=== PATIENT | male | born 1930 | race Caucasian/White ===

== ENCOUNTER → 2016-06-13 | Outpatient (CLI) | payer OTHER, MEDICARE ==
[~2016-06-13] MED LIST: LEVO125T5 PO; PRAV20TA PO
[2016-06-13 12:18] LABS: BASO % 0.6 %; BASO ABS # 0.05 K/uL (0-0.2); COMPLETE YES; EOS % 4.9 %; HEMATOCRIT 43.3 % (42-52); IG% 0.3 %; LYMPH % 48.4 %; LYMPH ABS # 3.76 K/uL (1.2-3.4); MEAN CELL VOLUME 88.9 fL (80-100); MEAN CORPUSCULAR HEMOGLOBIN 29.4 pg (25-34); MEAN PLATELET VOLUME 10.8 fL (7.4-10.4); MONO % 8.5 %; NEUT % 37.3 %; PLATELET COUNT 255 K/uL (130-400); RED BLOOD COUNT 4.87 M/uL (4.7-6.1); WHITE BLOOD COUNT 7.77 K/uL (4.8-10.8)
[2016-06-13 12:32] LABS: URINE APPEARANCE CLEAR (CLEAR); URINE BILIRUBIN NEG (NEG); URINE COLOR YELLOW; URINE EPITHELIAL CELL AUTO 0-5 /lpf (0-5); URINE NITRITE NEG (NEG); URINE PH 7.5 (4.5-7.5); URINE SPECIFIC GRAVITY 1.015 (1.000-1.030); UROBILINOGEN NEG (NEG); ZZUR CULT IF INDIC CLEAN CATCH NO
[2016-06-13 12:39] LABS: ESTIMATED AVERAGE GLUCOSE 146 mg/dl; HA1C FLAG Normal (Normal)
[2016-06-13 12:55] LABS: MANUAL MICROSCOPIC REQUIRED? NO; REVIEW REQ? NO
== END | disposition home or self-care (01) ==
LOC: C.LABBFT 10:19
PROVIDERS: ATTEND Internal Medicine
DX: R80.9 Proteinuria, unspecified (principal); E53.8 Deficiency of other specified B group vitamins; E11.9 Type 2 diabetes mellitus without complications

== ENCOUNTER → 2016-08-03 | Outpatient (CLI) | payer OTHER, MEDICARE ==
[~2016-08-03] MED LIST changes: +LEVO125T4 PO; -LEVO125T5 PO
[2016-08-03 18:19] LABS: ALT/SGPT 26 U/L (12-78); AST/SGOT 22 U/L (15-37); BLOOD UREA NITROGEN 16 mg/dl (7-18); BUN/CREATININE RATIO 16.7 (10-20); CALCIUM 8.8 mg/dl (8.5-10.1); CARBON DIOXIDE 29 mmol/L (21-32); CHLORIDE 105 mmol/L (98-107); CREATININE 0.98 mg/dl (0.60-1.40); GLUCOSE 75 mg/dl (70-99); POTASSIUM 4.1 mmol/L (3.5-5.1); SODIUM 142 mmol/L (136-145)
[2016-08-03 18:30] LABS: ALB/GLOB RATIO 0.6 (0.9-2); ALKALINE PHOSPHATASE 96 U/L (45-117)
--- NOTE | 2016-08-09 10:03 | CODING QUERY MEDICAL NECESSITY ---
SUPPORTING DIAGNOSIS NEEDED A supporting diagnosis is required for the test/procedure performed on this patient in order for us to be reimbursed by the patient's insurance. Please provide a supporting diagnosis for the following test/procedure listed below next to the test name along with your signature. *If there is no additional diagnosis for this patient that would support the following test/procedure please document that below next to the test/procedure. Test(s)/Procedure(s) that require a supporting diagnosis: DOS 08/03 * Vitamin D DIAGNOSIS: Provider Signature: Date: Thank you Nancy Fang Health Information Management Once completed, please kindly fax back to [phone] For questions please call [phone]
== END | disposition home or self-care (01) ==
LOC: C.LABBFT 12:22
PROVIDERS: ATTEND Internal Medicine
DX: R53.83 Other fatigue (principal); E55.9 Vitamin D deficiency, unspecified

== ENCOUNTER → 2017-01-01 | Outpatient (CLI) | payer OTHER, MEDICARE ==
[2017-01-01 12:10] LABS: BASO ABS # 0.07 K/uL (0-0.2); COMPLETE YES; EOS % 5.8 %; HEMATOCRIT 42.6 % (42-52); IG% 0.1 %; LYMPH % 42.7 %; LYMPH ABS # 2.93 K/uL (1.2-3.4); MEAN CELL VOLUME 90.8 fL (80-100); MEAN CORPUSCULAR HEMOGLOBIN 29.2 pg (25-34); MEAN CORPUSCULAR HGB CONC 32.2 g/dl (32-36); MEAN PLATELET VOLUME 10.9 fL (7.4-10.4); MONO % 8.7 %; NEUT % 41.7 %; PLATELET COUNT 211 K/uL (130-400); RED BLOOD COUNT 4.69 M/uL (4.7-6.1); WHITE BLOOD COUNT 6.86 K/uL (4.8-10.8)
[2017-01-01 12:25] LABS: ALB/GLOB RATIO 0.8 (0.9-2); ALT/SGPT 29 U/L (12-78); AST/SGOT 23 U/L (15-37); BLOOD UREA NITROGEN 18 mg/dl (7-18); BUN/CREATININE RATIO 15.9 (10-20); CARBON DIOXIDE 29 mmol/L (21-32); CHLORIDE 106 mmol/L (98-107); CHOLESTEROL 178 mg/dl (0-200); GLUCOSE 115 mg/dl (70-99); POTASSIUM 4.7 mmol/L (3.5-5.1); SODIUM 140 mmol/L (136-145); TRIGLYCERIDES 142 mg/dl (0-150); VERY LOW DENSITY LIPOPROT CALC 28 mg/dl
[2017-01-01 12:44] LABS: ALKALINE PHOSPHATASE 82 U/L (45-117); CHOLESTEROL/HDL RATIO 4.2; HDL CHOLESTEROL 42 mg/dl; LDL CHOLESTEROL CALCULATED 108 mg/dl
[2017-01-01 12:47] LABS: RATIO 67.6 mcg/mg (0-30.0)
[2017-01-01 13:00] LABS: ESTIMATED AVERAGE GLUCOSE 146 mg/dl; HA1C FLAG Normal (Normal)
[2017-01-02 18:24] LABS: ALBUMIN 3.7 G/DL (3.8-4.8); GAMMA GLOBULIN 1.5 G/DL (0.8-1.7); MONOCLONAL PROTEIN BAND 1 0.7 G/DL (NOT DETECTED); MONOCLONAL PROTEIN BAND 2 0.5 G/DL (NOT DETECTED); TOTAL PROTEIN 7.1 G/DL (6.2-8.3)
[2017-01-03 11:33] LABS: ALPHA-2-GLOBULIN % 8.78 %; BETA GLOBULIN % 15.03 %; CREATININE UR 100 MG/DL (20-370); GAMMA GLOBULIN % 17.83 %
== END | disposition home or self-care (01) ==
LOC: C.LABBFT 08:08
PROVIDERS: ATTEND Internal Medicine
DX: R80.9 Proteinuria, unspecified (principal); D64.9 Anemia, unspecified; E53.8 Deficiency of other specified B group vitamins; E78.00 Pure hypercholesterolemia, unspecified; E55.9 Vitamin D deficiency, unspecified; E11.9 Type 2 diabetes mellitus without complications; E03.9 Hypothyroidism, unspecified

== ENCOUNTER → 2017-05-16 | Outpatient (CLI) | payer OTHER, MEDICARE ==
[~2017-05-16] MED LIST changes: -LEVO125T4 PO; +LEVO125T5 PO
[2017-05-16 12:38] LABS: ALT/SGPT 23 U/L (12-78); BLOOD UREA NITROGEN 24 mg/dl (7-18); BUN/CREATININE RATIO 19.6 (10-20); CALCIUM 8.8 mg/dl (8.5-10.1); CARBON DIOXIDE 28 mmol/L (21-32); CHLORIDE 106 mmol/L (98-107); CHOLESTEROL 162 mg/dl (0-200); GLUCOSE 103 mg/dl (70-99); GLUCOSE,FASTING 103 mg/dl (70-99); POTASSIUM 4.6 mmol/L (3.5-5.1); SODIUM 139 mmol/L (136-145)
[2017-05-16 12:41] LABS: ALB/GLOB RATIO 0.7 (0.9-2); ALKALINE PHOSPHATASE 106 U/L (45-117); AST/SGOT 21 U/L (15-37); CHOLESTEROL/HDL RATIO 3.3; HDL CHOLESTEROL 49 mg/dl; LDL CHOLESTEROL CALCULATED 100 mg/dl; TRIGLYCERIDES 63 mg/dl (0-150); VERY LOW DENSITY LIPOPROT CALC 13 mg/dl
[2017-05-16 12:52] LABS: ESTIMATED AVERAGE GLUCOSE 140 mg/dl; HA1C FLAG Normal (Normal)
== END | disposition home or self-care (01) ==
LOC: C.LABBFT 08:16
PROVIDERS: ATTEND Internal Medicine
DX: R77.1 Abnormality of globulin (principal); E53.8 Deficiency of other specified B group vitamins; E11.9 Type 2 diabetes mellitus without complications; E78.00 Pure hypercholesterolemia, unspecified

== ENCOUNTER → 2017-05-18 | Outpatient (CLI) | payer OTHER, MEDICARE ==
--- NOTE | 2017-05-18 10:31 | DIAGNOSTIC IMAGING REPORT ---
L HIP UNILATERAL 2 VIEWS CLINICAL HISTORY: M25.552 Hip pain, [id number] pain COMPARISON: None. Discussion: Mild degenerative narrowing left hip joint space. No evidence for acetabular protrusion. No evidence for fracture. Minimal calcific trochanteric bursitis. IMPRESSION: 1. Mild degenerative narrowing left hip joint space. 2. Mild calcific trochanteric bursitis. 3. No acute bony abnormality The above report was generated using voice recognition software. It may contain grammatical, syntax or spelling errors. Electronically signed by: Kang Tena M.D. 05/18/2017 10:29 AM Dictated Date/Time: 05/18/2017 10:28 AM
== END | disposition home or self-care (01) ==
LOC: C.RAD1850 10:15
PROVIDERS: ATTEND Internal Medicine
DX: M89.8X5 Other specified disorders of bone, thigh (principal); M70.62 Trochanteric bursitis, left hip

== ENCOUNTER → 2017-06-15 | Outpatient (CLI) | payer OTHER, MEDICARE | END | disposition home or self-care (01) | LOC: C.RDSM 16:12 | PROVIDERS: ATTEND Orthopaedic Surgery | DX: M25.559 Pain in unspecified hip (principal) ==

== ENCOUNTER → 2017-09-11 | Outpatient (CLI) | payer OTHER, MEDICARE ==
[2017-09-12 05:34] LABS: HEMOGLOBIN A1C 6.5 % (4.5-5.6)
== END | disposition home or self-care (01) ==
LOC: C.LABBFT 07:25
PROVIDERS: ATTEND Internal Medicine
DX: E53.8 Deficiency of other specified B group vitamins (principal); E78.00 Pure hypercholesterolemia, unspecified; E11.9 Type 2 diabetes mellitus without complications; E03.9 Hypothyroidism, unspecified; E55.9 Vitamin D deficiency, unspecified

== ENCOUNTER → 2018-01-24 | Outpatient (CLI) | payer OTHER, MEDICARE ==
[2018-01-24 13:06] LABS: BASO % 1.6 %; BASO ABS # 0.11 K/uL (0-0.2); EOS % 21.1 %; EOS ABS # 1.43 K/uL (0-0.5); HEMATOCRIT 40.7 % (42-52); HEMOGLOBIN 13.4 g/dL (14.0-18.0); IG# 0.01 K/uL (0.00-0.02); LYMPH % 34.2 %; LYMPH ABS # 2.32 K/uL (1.2-3.4); MEAN CELL VOLUME 92.1 fL (80-100); MEAN CORPUSCULAR HEMOGLOBIN 30.3 pg (25-34); MEAN CORPUSCULAR HGB CONC 32.9 g/dl (32-36); MEAN PLATELET VOLUME 10.7 fL (7.4-10.4); MONO % 8.7 %; MONO ABS # 0.59 K/uL (0.11-0.59); NEUT % 34.3 %; NEUT ABS # 2.33 K/uL (1.4-6.5); PLATELET COUNT 216 K/uL (130-400); RED CELL DISTRIBUTION WIDTH CV 15.3 % (11.5-14.5); RED CELL DISTRIBUTION WIDTH SD 51.9 fL (36.4-46.3); WHITE BLOOD COUNT 6.79 K/uL (4.8-10.8)
[2018-01-24 13:19] LABS: HEMOGLOBIN A1C 6.3 % (4.5-5.6)
[2018-01-24 13:31] LABS: ALBUMIN 3.4 gm/dl (3.4-5.0); ALKALINE PHOSPHATASE 158 U/L (45-117); ALT/SGPT 22 U/L (12-78); AST/SGOT 21 U/L (15-37); BLOOD UREA NITROGEN 22 mg/dl (7-18); CALCIUM 8.4 mg/dl (8.5-10.1); CARBON DIOXIDE 23 mmol/L (21-32); CHOLESTEROL 159 mg/dl (0-200); CREATININE 1.19 mg/dl (0.60-1.40); GLUCOSE 96 mg/dl (70-99); LDL CHOLESTEROL CALCULATED 97 mg/dl; SODIUM 139 mmol/L (136-145); TOTAL PROTEIN 7.7 gm/dl (6.4-8.2)
== END | disposition home or self-care (01) ==
LOC: C.LABBFT 07:50
PROVIDERS: ATTEND Internal Medicine
DX: E11.9 Type 2 diabetes mellitus without complications (principal); R77.1 Abnormality of globulin; E03.9 Hypothyroidism, unspecified; E55.9 Vitamin D deficiency, unspecified; E78.00 Pure hypercholesterolemia, unspecified; E53.8 Deficiency of other specified B group vitamins

== ENCOUNTER 2019-05-18 22:33 | Inpatient (IN) ==
[2019-05-18] MEDS ORDERED: SODIUM CHLORIDE 0.9% 500 ML IV SCH (23:15)
[2019-05-18 23:46] LABS: Basophils # (auto) 0.02 K/uL (0-0.2); Basophils % (auto) 0.1 %; Hematocrit (blood only) 41.1 % (42-52); Hemoglobin 13.9 g/dL (14.0-18.0); Immature Granulocytes % (auto) 1.1 %; Lymphocytes # (auto) 1.06 K/uL (1.2-3.4); Mean Corpuscular Hemoglobin 30.8 pg (25-34); Mean Corpuscular Hgb Conc 33.8 g/dL (32-36); Mean Corpuscular Volume 91.1 fL (80-100); Monocytes # (auto) 1.77 K/uL (0.11-0.59); Neutrophils # (auto) 14.69 K/uL (1.4-6.5); Neutrophils % (auto) 82.8 %; Platelet Count 263 K/uL (130-400); RDW Coefficient of Variation 14.6 % (11.5-14.5); RDW Standard Deviation 48.9 fL (36.4-46.3); Red Blood Count 4.51 M/uL (4.7-6.1); White Blood Count 17.74 K/uL (4.8-10.8)
[2019-05-18 23:49] LABS: Base Excess VBG -1.6 mEq/L; pH VBG 7.37 (7.36-7.41)
[2019-05-18 23:52] LABS: INR 1.1 (0.9-1.1); Prothrombin Time 11.5 Seconds (9.0-12.0)
[2019-05-19 00:08] LABS: Troponin I 0.066 ng/ml (0-0.045)
[2019-05-19 00:11] LABS: Albumin Level 2.5 gm/dl (3.4-5.0); BUN Creatinine Ratio 18.1 (10-20); Calcium 8.6 mg/dl (8.5-10.1); Creatinine Clr Calc Pharmacy 25.5 ml/min; Est GFR (African American) 31.6; Est GFR (Non-African American) 27.2; Magnesium 2.5 mg/dl (1.8-2.4); Potassium 3.6 mmol/L (3.5-5.1)
[2019-05-19 00:25] LABS: Albumin Globulin Ratio 0.5 (0.9-2); Bilirubin,Total 0.8 mg/dl (0.2-1); Globulin 5.4 gm/dl (2.5-4.0); Thyroid Stimulating Hormone 0.413 uIu/ml (0.300-4.500); Total Protein 7.9 gm/dl (6.4-8.2)
[2019-05-19] MEDS ORDERED: SODIUM CHLORIDE 0.9% 1000ML 1,000 ML IV ONE (00:27)
[2019-05-19] MEDS ORDERED: NYSTATIN POWDER 15GM BTL EXT PRN (02:20)
--- NOTE | 2019-05-19 02:34 | History & Physical Report ---
Date of Service May 19, 2019 Assessment & Plan (1) Rhabdomyolysis: Patient is a 89yo M H ILD, , MGUS, hypothyroid, HLD, T2DM, Depression, DJD, neuropathy, admitted for rhabdomyolysis/darryl/weakness Rhabdomyolysis/DARRYL -Likely intertwined and related to acute on chronic dehydration -IVF NSS at 200cc/hr. Regular lung exams rec'd. -Recheck labs in AM: CK, LFTs, K, Ca, CBC Weakness/dizziness/fatigue -Pt reports anorexia -Nutrition consult -PT/OT consulted -Holding gabapentin; consider as possible contributing factor to chronic dizziness/unsteadiness Diabetes -Pt reports "borderline" diabetic; on no meds at home -Monitor glucose with daily labs; consider ISS prn Hypothyroid -TSH wnl; cont home meds HLD -appears diet controlled; heart healthy diet Neuropathy -holding gabapentin as above. Code: DNR/DNI Dispo: admit to med/surg DVTP: heparin SQ BID GranddaughterGuillermina would like to be contacted at [phone]. (2) DARRYL (acute kidney injury): (3) Weakness: (4) Diabetes mellitus: (5) Hypercholesterolemia: (6) Hypothyroidism: (7) Fatigue: (8) Neuropathy: History of Present Illness Chief Complaint: weakness Primary Care Provider: Irwin Fam MD Patient is a 89yo M H ILD, , MGUS, hypothyroid, HLD, T2DM, Depression, anemia, DJD, neuropathy, who presents via EMS after being found by granddaughter on the floor. History provided by Granddaughter, Guillermina. She notes that he has been having chronic issues with LE weakness and dizziness, however [place] and felt [place]%. [place], he thinks he caught a cold which he has been struggling with. Pt has family check on him daily, and granddaughter states on Sunday (2 days [employer]), he was c/o diminished strength, not eating, dehydrated, decreased ambulation. Another family member did check on him on Sunday and noted more of the same. Granddaughter checked on him this evening (Sunday), and found him alongside his bed, with his head resting on the bed, legs extended on the floor. Pt does not 100% remember events of this evening, but states that he was too weak while getting into bed and denies falling out of bed or hitting his head. He does not believe he had been there long. Granddaughter states he felt he couldn't move his legs, and therefore a neighbor helped her hoist him into bed to await EMS. She notes that he will periodically have issues with balance and leg weakness and that physicians have reported there's not much to be done. Guillermina notes that he has an appointment on Sunday morning and she expected that Dr. Fam would be sending him to the ER if for nothing else, rehydration. In the ER, Labwork revealed an elevtaed WBC of 17K, DARRYL with Cr of 2.09 (Baseline 1.2-1.3), CK of 5941, mildly elevated troponin 0.066, Mildly altered LFTs, and a normal VBG, normal TSH. He was given a 1500cc bolus of fluid. Head CT, Ab/Pelvis CT both without acute findings; pending formal read by radiology. Allergies Allergy/AdvReac Type Severity Reaction Status Date / Time No Known Allergies Allergy Verified 05/18/19 23:38 Home Medications Home Medications Medication Instructions Recorded Confirmed Type cyanocobalamin (vitamin B-12) 1,000 mcg SQ MONTHLY ml 11/30/18 05/18/19 History 1,000 mcg/mL injection solution vitamins A,C,M-yeni-vprkhl 14,320 1 cap PO BID cap 11/30/18 05/18/19 History unit-226 mg-200 unit capsule celecoxib 200 mg capsule 200 mg PO DAILY cap 03/07/19 05/18/19 History paroxetine HCl 10 mg tablet 10 mg PO DAILY #90 tab 04/23/19 05/18/19 Rx gabapentin 100 mg capsule 200 mg PO BID #120 cap 04/30/19 05/18/19 Rx nystatin 100,000 unit/gram topical 1 appln TOP BID #30 gm 04/30/19 05/18/19 Rx powder levothyroxine 112 mcg tablet 112 mcg PO DAILY 05/18/19 05/18/19 History Past Med/Surg History Medical History Carotid artery stenosis Encounter for screening for malignant neoplasm of prostate Squamous cell carcinoma Surgical History History of carpal tunnel surgery Neuroplasty decompression mediam nerve at carpal tunnel. 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 Beliefs That Will Affect Care: None marital status: Current Living Situation: Alone current occupational status: retired Other Information That Helps Us Care for You: No Feels Safe at Home: Yes Safety Concerns: Feels Safe At This Time Smoking Status: Never smoker Hx Alcohol Use: No Hx Substance Use: No Review of Systems Review of Systems: All systems reviewed & are unremarkable except as noted in HPI & below Constitutional: + fatigue, + malaise, + weakness and + anorexia; no fever, no chills and no body aches Ear, Nose, Mouth, Throat: + dry mouth Respiratory: + cough and + chest congestion; no dyspnea Cardiovascular: no chest pain, no radiating jaw, neck or arm pain, no dyspnea at rest and no dyspnea on exertion Gastrointestinal: + bloating, + nausea and + diarrhea/loose stools; no abdominal pain Musculoskeletal: + back pain Integumentary: no rash Neurologic: + gait abnormality, + unsteadiness, + generalized weakness, + loss of sensation and + numbness; no falls and no dizziness Psychiatric: + depression Physical Exam Constitutional: WD/WN, vitals as above + ill appearing (chronically) Eyes: PERRL, conjunctivae normal, anicteric sclerae ENMT: Mouth: + oral mucosal abnormality (Dry mucous membranes) Neck: normal visual inspection Respiratory: normal respiratory effort, lungs clear to auscultation Cardiovascular: Rate/Rhythm: regular rate and regular rhythm Heart Sounds: + murmur Vessels: + carotid bruit Extremities: no pedal edema Gastrointestinal (Abdomen): normal bowel sounds, soft, nontender, no hepatosplenomegaly Musculoskeletal: Extremities: strength 5/5 throughout (4/5 strength in lower extremities, patient able to move on his own) Skin: no rashes, warm and dry + turgor decreased Neurologic: PERRL, EOMI, accommodation nl, no face palsy, no dysarthria Psychiatric: A+Ox3, euthymic affect (slow to answer but did answer correctly) Results & Data Vital Signs (Past 12 Hours) Vital Signs Temp Pulse Resp BP Pulse Ox 05/19/19 02:01 78 24 97 05/19/19 02:00 83 22 127/56 L 95 05/19/19 01:31 82 20 05/19/19 01:30 81 20 119/55 L 05/19/19 01:01 83 24 93 05/19/19 01:00 82 25 H 122/56 L 95 05/19/19 00:56 84 25 H 107/65 96 05/19/19 00:54 81 25 H 95 05/18/19 23:35 96 05/18/19 23:31 91 H 26 H 05/18/19 23:30 91 H 28 H 118/50 L 05/18/19 23:01 93 H 18 96 05/18/19 23:00 96 H 18 104/66 95 05/18/19 22:48 99.1 F 90 18 108/47 L 95 05/18/19 22:45 95 H 20 94 05/18/19 22:41 99 H 20 108/47 L 94 Laboratory Results 05/18/19 05/18/19 05/18/19 Range/Units 23:29 23:29 23:29 WBC (4.8-10.8) K/uL RBC (4.7-6.1) M/uL Hgb (14.0-18.0) g/dL Hct (42-52) % MCV (80-100) fL MCH (25-34) pg MCHC (32-36) g/dL RDW Std Deviation (36.4-46.3) fL RDW Coeff of Eric (11.5-14.5) % Plt Count (130-400) K/uL MPV (7.4-10.4) fL Immature Gran % (Auto) % Neut % (Auto) % Lymph % (Auto) % [place] % (Auto) % Eos % (Auto) % Baso % (Auto) % Immature Gran # (Auto) (0.00-0.02) K/uL Neut # (Auto) (1.4-6.5) K/uL Lymph # (Auto) (1.2-3.4) K/uL [place] # (Auto) (0.11-0.59) K/uL Eos # (Auto) (0-0.5) K/uL Baso # (Auto) (0-0.2) K/uL PT (9.0-12.0) Seconds INR (0.9-1.1) VBG pH 7.37 (7.36-7.41) VBG pCO2 42 (38-50) mmHg VBG pO2 31 mmHg VBG HCO3 24 mmol/L VBG O2 Saturation 62.0 % VBG Base Excess -1.6 mEq/L Barometric Pressure 735.9 mm/Hg Sodium (136-145) mmol/L Potassium (3.5-5.1) mmol/L Chloride (98-107) mmol/L Carbon Dioxide (21-32) mmol/L Anion Gap (3-11) BUN (7-18) mg/dl Creatinine (0.6-1.4) mg/dl Est Cr Clr Drug Dosing ml/min Est GFR ( Amer) Est GFR (Non-Af Amer) BUN/Creatinine Ratio (10-20) Glucose (70-99) mg/dl Calcium (8.5-10.1) mg/dl Magnesium (1.8-2.4) mg/dl Total Bilirubin (0.2-1) mg/dl AST (15-37) U/L ALT (12-78) U/L Alkaline Phosphatase (45-117) U/L Ammonia 27.0 (11-32) umol/L Total Creatine Kinase (39-308) U/L Troponin I 0.066 H* (0-0.045) ng/ml Total Protein (6.4-8.2) gm/dl Albumin (3.4-5.0) gm/dl Globulin (2.5-4.0) gm/dl Albumin/Globulin Ratio (0.9-2) Lipase 101 (73-393) U/L TSH (0.300-4.500) uIu/ml Specimen Hemolysis 05/18/19 05/18/19 05/18/19 Range/Units 23:29 23:29 23:29 WBC 17.74 H (4.8-10.8) K/uL RBC 4.51 L (4.7-6.1) M/uL Hgb 13.9 L (14.0-18.0) g/dL Hct 41.1 L (42-52) % MCV 91.1 (80-100) fL MCH 30.8 (25-34) pg MCHC 33.8 (32-36) g/dL RDW Std Deviation 48.9 H (36.4-46.3) fL RDW Coeff of Eric 14.6 H (11.5-14.5) % Plt Count 263 (130-400) K/uL MPV 12.0 H (7.4-10.4) fL Immature Gran % (Auto) 1.1 % Neut % (Auto) 82.8 % Lymph % (Auto) 6.0 % [place] % (Auto) 10.0 % Eos % (Auto) 0.0 % Baso % (Auto) 0.1 % Immature Gran # (Auto) 0.20 H (0.00-0.02) K/uL Neut # (Auto) 14.69 H (1.4-6.5) K/uL Lymph # (Auto) 1.06 L (1.2-3.4) K/uL [place] # (Auto) 1.77 H (0.11-0.59) K/uL Eos # (Auto) 0.00 (0-0.5) K/uL Baso # (Auto) 0.02 (0-0.2) K/uL PT 11.5 (9.0-12.0) Seconds INR 1.1 (0.9-1.1) VBG pH (7.36-7.41) VBG pCO2 (38-50) mmHg VBG pO2 mmHg VBG HCO3 mmol/L VBG O2 Saturation % VBG Base Excess mEq/L Barometric Pressure mm/Hg Sodium 138 (136-145) mmol/L Potassium 3.6 (3.5-5.1) mmol/L Chloride 105 (98-107) mmol/L Carbon Dioxide 23 (21-32) mmol/L Anion Gap 10.0 (3-11) BUN 38 H (7-18) mg/dl Creatinine 2.09 H (0.6-1.4) mg/dl Est Cr Clr Drug Dosing 25.5 ml/min Est GFR ( Amer) 31.6 Est GFR (Non-Af Amer) 27.2 BUN/Creatinine Ratio 18.1 (10-20) Glucose 182 H (70-99) mg/dl Calcium 8.6 (8.5-10.1) mg/dl Magnesium 2.5 H (1.8-2.4) mg/dl Total Bilirubin 0.8 (0.2-1) mg/dl AST 127 H (15-37) U/L ALT 56 (12-78) U/L Alkaline Phosphatase 126 H (45-117) U/L Ammonia (11-32) umol/L Total Creatine Kinase 5941 H (39-308) U/L Troponin I (0-0.045) ng/ml Total Protein 7.9 (6.4-8.2) gm/dl Albumin 2.5 L (3.4-5.0) gm/dl Globulin 5.4 H (2.5-4.0) gm/dl Albumin/Globulin Ratio 0.5 L (0.9-2) Lipase (73-393) U/L TSH 0.413 (0.300-4.500) uIu/ml Specimen Hemolysis Code Status & VTE Plan Code Status DNR/DNI Heparin SQ BID VTE Prophylaxis Plan VTE Prophylaxis will be ordered: Yes Supervising Physician Co-Signing Physician Notes Patient was seen and examined by me personally. I reviewed the chart, the orders and discussed the case in detail with Dr. Deonna Menezes MD . I read this H&P and agree with its contents to entirety. Resident Activity Tracking Resident Involvement: Resident Care Provided Care Provided: Adult Hospital Medicine (1) Rhabdomyolysis Rhabdomyolysis type: non-traumatic Qualified Code(s): M62.82 - Rhabdomyolysis
[2019-05-19] MEDS ORDERED: MAGNESIUM HYDROXIDE SUSP 30 ML UDC PO PRN (03:27)
[2019-05-19] MEDS ORDERED: ONDANSETRON INJ 2 MG/ML 2 ML VIAL IV PRN (03:27)
[2019-05-19] MEDS ORDERED: ALUMINUM/MAGNESIUM SUSP 30 ML UDC PO PRN (03:27)
[2019-05-19] MEDS ORDERED: POLYETHYLENE (MIRALAX) 17 GM PACK PO PRN (03:27)
[2019-05-19] MEDS: SODIUM CHLORIDE 0.9% 1000ML 1,000 ML IV SCH ×4 (04:14→20:10)
--- NOTE | 2019-05-19 05:26 | Billing Data ---
Coding Level of Care Code 09129 Initial Inpt Care Lvl 3
[2019-05-19] MEDS: LEVOTHYROXINE SODIUM 112 MCG TABLET PO SCH (05:40)
--- NOTE | 2019-05-19 06:00 | Emergency Department Note ---
Entered by Suly Lynch acting as a scribe for Allen Hanson M.D. History of Present Illness General Chief complaint: Fall Stated complaint: FALL, PAIN ALL OVER Time Seen by Provider: 05/18/19 22:52 Source: patient and family (granddaughter) History of Present Illness Onset (ago): day(s) 6 Location: head (generally) Pain Consistency: + other (worsening) Quality: + other (weakness) Associated symptoms: + other (positive congestion; positive trouble getting out of chair; positive hip pain; negative eating or drinking properly; positive loss of energy; positive fall into bed; positive white discharge from rectum; positive white stool) Treatments prior to arrival: other (cream/powder for yeast infection) The patient is a 89 year old male with PMHx of hypothyroidism, diabetes, asthma, and aortic stenosis who presents to the Emergency Room with complaints of worsening weakness that began Sunday, 6 days prior to arrival, per the patient's granddaughter. Per the patient's granddaughter the patient just had a cold at the beginning of last week but then progressively became more weak during this time. The patient reports congestion currently. He states that during this time he has had trouble getting out of his chair, and states that he has hip pain. The patient states that he has not been eating or drinking during this time, and states that he has no energy. The patient states that today he was found by family in bed after falling into bed. The patient states that for approximately 4 or 5 weeks he has had white discharge from his rectum, and states that all of his stool has been white. The patient's granddaughter states that the patient's PCP told the patient he had a yeast infection and gave him some sort of cream or powder for this. The patient's history is limited secondary to confusion. Home Medications Home Medications Medication Instructions Recorded Confirmed Type cyanocobalamin (vitamin B-12) 1,000 mcg SQ MONTHLY ml 11/30/18 05/18/19 History 1,000 mcg/mL injection solution vitamins A,C,O-[id number] 14,320 1 cap PO BID cap 11/30/18 05/18/19 History unit-226 mg-200 unit capsule celecoxib 200 mg capsule 200 mg PO DAILY cap 03/07/19 05/18/19 History paroxetine HCl 10 mg tablet 10 mg PO DAILY #90 tab 04/23/19 05/18/19 Rx gabapentin 100 mg capsule 200 mg PO BID #120 cap 04/30/19 05/18/19 Rx nystatin 100,000 unit/gram topical 1 appln TOP BID #30 gm 04/30/19 05/18/19 Rx powder levothyroxine 112 mcg tablet 112 mcg PO DAILY 05/18/19 05/18/19 History Allergies Allergy/AdvReac Type Severity Reaction Status Date / Time No Known Allergies Allergy Verified 05/18/19 23:38 Past Med/Surg History Medical History Carotid artery stenosis Encounter for screening for malignant neoplasm of prostate Squamous cell carcinoma Surgical History History of carpal tunnel surgery Neuroplasty decompression mediam nerve at carpal tunnel. History of total knee arthroplasty Family History Mother Dementia Father Diabetes Stroke Son Quadriplegia Social History Preferred Language: Belarusian Communication Ability: Effective Visual Impairment: No Limitations Pipe Roller Required: No Beliefs That Will Affect Care: None marital status: Current Living Situation: Alone current occupational status: retired Other Information That Helps Us Care for You: No Feels Safe at Home: Yes Safety Concerns: Feels Safe At This Time Smoking Status: Never smoker Hx Alcohol Use: No Hx Substance Use: No Review of Systems A total of 10 systems reviewed and were otherwise negative Other (The patient's history is limited secondary to confusion.) Physical Exam Vital Signs Vital Signs - 24 hr 05/18/19 22:41 05/18/19 22:45 05/18/19 22:48 Temperature 37.3 C Temperature Source Oral Pulse Rate 99 H 95 H 90 Pulse Rate from SpO2 Sensor 95 H 96 H Respiratory Rate 20 20 18 Respiratory Effort / Characteristics Non-Labored Spontaneous Respiratory Depth Normal Blood Pressure 108/47 L 108/47 L Blood Pressure Mean 65 67 Pulse Oximetry 94 94 95 Oxygen Delivery Method Room Air Sepsis Recent Fever Within 48 Hours No Sepsis New/Unexplained Change in Mental Status No Sepsis Action Taken by Nursing No Action Required 05/18/19 23:00 05/18/19 23:01 05/18/19 23:30 Temperature Temperature Source Pulse Rate 96 H 93 H 91 H Pulse Rate from SpO2 Sensor 95 H 95 H Respiratory Rate 18 18 28 H Respiratory Effort / Characteristics Respiratory Depth Blood Pressure 104/66 118/50 L Blood Pressure Mean 74 73 Pulse Oximetry 95 96 Oxygen Delivery Method Sepsis Recent Fever Within 48 Hours Sepsis New/Unexplained Change in Mental Status Sepsis Action Taken by Nursing 05/18/19 23:31 05/18/19 23:35 05/19/19 00:54 Temperature Temperature Source Pulse Rate 91 H 81 Pulse Rate from SpO2 Sensor 81 Respiratory Rate 26 H 25 H Respiratory Effort / Characteristics Respiratory Depth Blood Pressure Blood Pressure Mean Pulse Oximetry 96 95 Oxygen Delivery Method Room Air Sepsis Recent Fever Within 48 Hours Sepsis New/Unexplained Change in Mental Status Sepsis Action Taken by Nursing 05/19/19 00:56 05/19/19 01:00 05/19/19 01:01 Temperature Temperature Source Pulse Rate 84 82 83 Pulse Rate from SpO2 Sensor 83 82 82 Respiratory Rate 25 H 25 H 24 Respiratory Effort / Characteristics Respiratory Depth Blood Pressure 107/65 122/56 L Blood Pressure Mean 80 70 Pulse Oximetry 96 95 93 Oxygen Delivery Method Sepsis Recent Fever Within 48 Hours Sepsis New/Unexplained Change in Mental Status Sepsis Action Taken by Nursing 05/19/19 01:30 05/19/19 01:31 05/19/19 02:00 Temperature Temperature Source Pulse Rate 81 82 83 Pulse Rate from SpO2 Sensor 82 Respiratory Rate 20 20 22 Respiratory Effort / Characteristics Respiratory Depth Blood Pressure 119/55 L 127/56 L Blood Pressure Mean 75 68 Pulse Oximetry 95 Oxygen Delivery Method Sepsis Recent Fever Within 48 Hours Sepsis New/Unexplained Change in Mental Status Sepsis Action Taken by Nursing 05/19/19 02:01 Temperature Temperature Source Pulse Rate 78 Pulse Rate from SpO2 Sensor 79 Respiratory Rate 24 Respiratory Effort / Characteristics Respiratory Depth Blood Pressure Blood Pressure Mean Pulse Oximetry 97 Oxygen Delivery Method Sepsis Recent Fever Within 48 Hours Sepsis New/Unexplained Change in Mental Status Sepsis Action Taken by Nursing GENERAL: A bit slow to answer. Somewhat confused about history. No slurred speech. Awake, oriented to time and place but not events, in no distress HENT: Normocephalic, atraumatic. Oropharynx unremarkable. EYES: Normal conjunctiva. Sclera non-icteric. NECK: Supple. No nuchal rigidity. RESPIRATORY: Clear to auscultation. No wheezes. Normal respiratory effort. CARDIAC: Normal rate. Normal rhythm. Extremities warm and well perfused. GI: Soft, non-distended. No tenderness to palpation. No rebound or guarding. RECTAL: Deferred. MUSCULOSKELETAL: Atraumatic. Chest examination reveals no tenderness. LOWER EXTREMITIES: Calves are equal size bilaterally and non-tender. No edema. Slight left hip tenderness. Erythema and healing abrasions on bilateral knees. NVI lower extremities. NEURO: No sensory or motor deficits noted. No facial droop. SKIN: Warm and dry. No rash or jaundice noted. Course Course 2257: Past medical records reviewed. The patient was evaluated in room C5. A complete history and physical exam was performed. 0030: I checked on and updated the patient on all results. 0124: I updated the patient. He is in agreement with the treatment plan. 0141: I discussed the case with Dr. Jett[facility] Hospitalist who accepts the patient for further evaluation. Administered Medications Sodium Chloride (Nss 1000ml) 1,000 mls @ 200 mls/hr IV .Q5H JOSE FRANCISCO Stop: 06/18/19 03:26 Last Admin: 05/19/19 04:14 Dose: 200 mls/hr Documented by: [id number] Levothyroxine Sodium (Synthroid) 112 mcg PO DAILYBB JOSE FRANCISCO Stop: 06/18/19 06:29 Last Admin: 05/19/19 05:40 Dose: 112 mcg Documented by: [id number] Discontinued Medications Sodium Chloride (Nss) 500 mls @ 999 mls/hr IV .Q31M JOSE FRANCISCO Stop: 05/18/19 23:45 Last Infusion: 05/19/19 00:34 Dose: 0 mls/hr Documented by: [id number] Admin: 05/18/19 23:43 Dose: 999 mls/hr Documented by: [id number] Sodium Chloride (Nss 1000ml) 1,000 mls @ 999 mls/hr IV .Q1H1M ONE Stop: 05/19/19 01:27 Last Infusion: 05/19/19 04:06 Dose: 0 mls/hr Documented by: [id number] Admin: 05/19/19 01:08 Dose: 999 mls/hr Documented by: [id number] Medical Decision Making Differential Diagnosis Differential Diagnosis includes but is not limited to dehydration, stroke, anemia, hypoglycemia, hyponatremia, hypernatremia, urinary tract infection, pneumonia, bronchitis, sepsis, gastroenteritis, additional abdominal pathology, metabolic abnormalities and infections. Medical Records Attestation: I reviewed the patient's medical records. Home Medications Current Medication List: was personally reviewed by me Laboratory Data Attestation: I reviewed the patient's lab results. Result diagrams: 05/18/19 23:29 05/18/19 23:29 Lab Results 05/18/19 05/18/19 05/18/19 Range/Units 23:29 23:29 23:29 WBC 17.74 H (4.8-10.8) K/uL RBC 4.51 L (4.7-6.1) M/uL Hgb 13.9 L (14.0-18.0) g/dL Hct 41.1 L (42-52) % MCV 91.1 (80-100) fL MCH 30.8 (25-34) pg MCHC 33.8 (32-36) g/dL RDW Std Deviation 48.9 H (36.4-46.3) fL RDW Coeff of Eric 14.6 H (11.5-14.5) % Plt Count 263 (130-400) K/uL MPV 12.0 H (7.4-10.4) fL Immature Gran % (Auto) 1.1 % Neut % (Auto) 82.8 % Lymph % (Auto) 6.0 % [place] % (Auto) 10.0 % Eos % (Auto) 0.0 % Baso % (Auto) 0.1 % Immature Gran # (Auto) 0.20 H (0.00-0.02) K/uL Neut # (Auto) 14.69 H (1.4-6.5) K/uL Lymph # (Auto) 1.06 L (1.2-3.4) K/uL [place] # (Auto) 1.77 H (0.11-0.59) K/uL Eos # (Auto) 0.00 (0-0.5) K/uL Baso # (Auto) 0.02 (0-0.2) K/uL PT 11.5 (9.0-12.0) Seconds INR 1.1 (0.9-1.1) VBG pH (7.36-7.41) VBG pCO2 (38-50) mmHg VBG pO2 mmHg VBG HCO3 mmol/L VBG O2 Saturation % VBG Base Excess mEq/L Barometric Pressure mm/Hg Sodium 138 (136-145) mmol/L Potassium 3.6 (3.5-5.1) mmol/L Chloride 105 (98-107) mmol/L Carbon Dioxide 23 (21-32) mmol/L Anion Gap 10.0 (3-11) BUN 38 H (7-18) mg/dl Creatinine 2.09 H (0.6-1.4) mg/dl Est Cr Clr Drug Dosing 25.5 ml/min Est GFR ( Amer) 31.6 Est GFR (Non-Af Amer) 27.2 BUN/Creatinine Ratio 18.1 (10-20) Glucose 182 H (70-99) mg/dl Calcium 8.6 (8.5-10.1) mg/dl Magnesium 2.5 H (1.8-2.4) mg/dl Total Bilirubin 0.8 (0.2-1) mg/dl AST 127 H (15-37) U/L ALT 56 (12-78) U/L Alkaline Phosphatase 126 H (45-117) U/L Ammonia (11-32) umol/L Total Creatine Kinase 5941 H (39-308) U/L Troponin I (0-0.045) ng/ml Total Protein 7.9 (6.4-8.2) gm/dl Albumin 2.5 L (3.4-5.0) gm/dl Globulin 5.4 H (2.5-4.0) gm/dl Albumin/Globulin Ratio 0.5 L (0.9-2) Lipase (73-393) U/L TSH 0.413 (0.300-4.500) uIu/ml Specimen Hemolysis 05/18/19 05/18/19 05/18/19 Range/Units 23:29 23:29 23:29 WBC (4.8-10.8) K/uL RBC (4.7-6.1) M/uL Hgb (14.0-18.0) g/dL Hct (42-52) % MCV (80-100) fL MCH (25-34) pg MCHC (32-36) g/dL RDW Std Deviation (36.4-46.3) fL RDW Coeff of Eric (11.5-14.5) % Plt Count (130-400) K/uL MPV (7.4-10.4) fL Immature Gran % (Auto) % Neut % (Auto) % Lymph % (Auto) % [place] % (Auto) % Eos % (Auto) % Baso % (Auto) % Immature Gran # (Auto) (0.00-0.02) K/uL Neut # (Auto) (1.4-6.5) K/uL Lymph # (Auto) (1.2-3.4) K/uL [place] # (Auto) (0.11-0.59) K/uL Eos # (Auto) (0-0.5) K/uL Baso # (Auto) (0-0.2) K/uL PT (9.0-12.0) Seconds INR (0.9-1.1) VBG pH 7.37 (7.36-7.41) VBG pCO2 42 (38-50) mmHg VBG pO2 31 mmHg VBG HCO3 24 mmol/L VBG O2 Saturation 62.0 % VBG Base Excess -1.6 mEq/L Barometric Pressure 735.9 mm/Hg Sodium (136-145) mmol/L Potassium (3.5-5.1) mmol/L Chloride (98-107) mmol/L Carbon Dioxide (21-32) mmol/L Anion Gap (3-11) BUN (7-18) mg/dl Creatinine (0.6-1.4) mg/dl Est Cr Clr Drug Dosing ml/min Est GFR ( Amer) Est GFR (Non-Af Amer) BUN/Creatinine Ratio (10-20) Glucose (70-99) mg/dl Calcium (8.5-10.1) mg/dl Magnesium (1.8-2.4) mg/dl Total Bilirubin (0.2-1) mg/dl AST (15-37) U/L ALT (12-78) U/L Alkaline Phosphatase (45-117) U/L Ammonia 27.0 (11-32) umol/L Total Creatine Kinase (39-308) U/L Troponin I 0.066 H* (0-0.045) ng/ml Total Protein (6.4-8.2) gm/dl Albumin (3.4-5.0) gm/dl Globulin (2.5-4.0) gm/dl Albumin/Globulin Ratio (0.9-2) Lipase 101 (73-393) U/L TSH (0.300-4.500) uIu/ml Specimen Hemolysis Imaging Data Attestation: I personally reviewed and interpreted this imaging study as follows: My Impression: CHEST X-RAY: No pneumothorax. No pneumonia. Slight pulmonary congestion. Small bilateral pl eural effusions. HIP/PELVIS X-RAY: No fractures. Stool burden. Radiologist's Impression: Radiology results as stated below per my review and the radiologist's interpretation: CT HEAD: INDICATION: TECHNIQUE: Multiple, contiguous 2.5 mm axial cuts of the brain are obtained from the posterior fossa to the cranial vault. Sagittal and coronal reformatted images provided. No IV contrast is administered. COMPARISON: FINDINGS: No intracranial hemorrhage, abnormal intra- or extra-axial collections or parenchymal lesions are seen. There are involutional changes with prominence of the sulci, basal cisterns and ventricles. Scattered white matter hypoattenuations are present, likely from small vessel disease. The lopez-white differentiation is preserved. No evidence of mass effect, midline shift, or edema. The osseous structures are unremarkable. Scattered mucosal thickening in the ethmoids. Status post bilateral lens replacement. IMPRESSION: 1. No acute intracranial process. 2. Involutional changes with small vessel disease. Radiologist: Vanda Lepe MD Study ready at 00:08 and initial results transmitted at 00:52 CT ABDOMEN & PELVIS Without Contrast: Findings: Lung bases: Chronic basilar increased interstitial lung markings. This to heart and esophagus: Calcification of the mitral valve and aortic valve. Heart and pericardium are normal. Liver: No intrahepatic lesion or ductal dilation. Gallbladder: Normal Spleen: Normal Pancreas: Normal Kidneys: Bilateral renal cysts ranging in size up to 2.8 cm in the right kidney upper pole and lateral mid pole of the left kidney. Ureters are of normal caliber. Bowel: Appendix is visualized and normal. Scattered colonic stool. Caliber of the small bowel loops is normal. Pelvis: No pelvic free fluid or mass. Bones: Lower lumbar spine degenerative changes are seen. Radiologist: Vanda Lepe MD Study ready at 01:02 and initial results transmitted at 01:15 ECG Data Attestation: I personally reviewed and interpreted this ECG as follows: Indication: + weakness Rate (beats per minute): 88 Rhythm: + sinus rhythm ECG ST segments: no ST depression and no ST elevation ECG Findings: + Other (normal intervals); no PVCs Blood Pressure Blood Pressure Findings: Elevated blood pressure Blood Pressure Disposition: elevated BP felt to be situational Head Trauma GCS Score: 15 MDM Narrative Patient is an 89-year-old gentleman with a past medical history of hypothyroidism, diabetes with neuropathy, ulcer, lumbar disc disease, aortic stenosis presenting today via ambulance after a fall. Patient is not on anticoagulation or antiplatelet agents per his report. Patient states over the past week he has been weak and not eating very much and nauseous at times. Has seen his doctor over the past several weeks is a little bit of a white yeastlike infection on his buttocks. This appears consistent may be a mild sacral decub here. Patient seems little bit confused stating that he has been laying on his bed since last night although according to family they visited him this afternoon. Concerned about dehydration. Planes of a little bit of left hip pain. Bit of a cough reported. Patient states he try to get into his bed and felt weak and landed on his bed. Denies any other pains although his knees are bothering him a little bit. There is little bit of erythema here but no significant evidence of joint tenderness or pain with ROM. I doubt fracture here. CT the head was completed. Chest x-ray obtained. EKG basic labs VBG were sent. Given a small fluid bolus initially here. Lower suspicion for significant traumatic injury seems like more weakness and confusion is the primary issues. No hypercarbia. Leukocytosis 17 is noted, ? stress response. Creatinine of 2 noted today which appears to be a new finding. BUN elevated. Dehydration. Troponins elevated without active chest pain. Believe this is more likely demand. CPK is elevated concerning for rhabdomyolysis. Given additional fluid bolus. CT abdomen pelvis completed to exclude intra-abdominal pathology given that he is been somewhat nauseous. Without severe findings per stat rad. Discussed with patient, family, and hospitalist for admission. Impression & Plan Weakness, PAGE (acute kidney injury), Rhabdomyolysis, Fall, Nausea Discharge Plan Visit Data *Final* Discharge Date/Time: 05/19/19 02:57 Chief Complaint: Fall Stated Complaint: FALL, PAIN ALL OVER ED Provider: Allen Hanson Discharge Problem: Weakness, PAGE (acute kidney injury), Rhabdomyolysis, Fall, Nausea Patient Disposition: Admitted As Inpatient Discharge Instructions Interventions: ED Discharge Assessment Last Done: 05/19/19 02:57 Discharge Problem: Rhabdomyolysis Qualifiers: Rhabdomyolysis type: non-traumatic Qualified Code(s): M62.82 - Rhabdomyolysis Fall Qualifiers: Encounter type: initial encounter Qualified Code(s): W19.XXXA - Unspecified fall, initial encounter The scribe's documentation has been prepared under my direction and personally reviewed by me in its entirety. I confirm that the note above accurately reflects all work, treatment, procedures, and medical decision making performed by me.
--- NOTE | 2019-05-19 06:27 | XRay Report ---
XR chest 1V portable CLINICAL HISTORY: weakness, cough dyspnea COMPARISON STUDY: 03/07/2018 FINDINGS: Mild cardiac enlargement. Diaphragms are smooth. Mild prominence of pulmonary vasculature. IMPRESSION: Mild congestive heart failure The above report was generated using voice recognition software. It may contain grammatical, syntax or spelling errors. Electronically signed by: Kang Tena M.D. 05/19/2019 6:26 AM
--- NOTE | 2019-05-19 06:31 | XRay Report ---
XR hip LT 2V w pelvis CLINICAL HISTORY: L hip pain pain COMPARISON: None. DISCUSSION: The bones and joint spaces appear intact. There is no evidence of fracture, dislocation o r bony disease. There is no evidence for soft tissue swelling. IMPRESSION: Negative study. The above report was generated using voice recognition software. It may contain grammatical, syntax or spelling errors. Electronically signed by: Kang Tena M.D. 05/19/2019 6:30 AM
[2019-05-19 07:05] LABS: Basophils # (auto) 0.03 K/uL (0-0.2); Basophils % (auto) 0.2 %; Eosinophils # (auto) 0.06 K/uL (0-0.5); Eosinophils % (auto) 0.3 %; Hematocrit (blood only) 36.9 % (42-52); Hemoglobin 12.2 g/dL (14.0-18.0); Immature Granulocytes # (auto) 0.12 K/uL (0.00-0.02); Immature Granulocytes % (auto) 0.7 %; Lymphocytes # (auto) 2.51 K/uL (1.2-3.4); Lymphocytes % (auto) 13.6 %; Mean Corpuscular Hemoglobin 30.6 pg (25-34); Mean Corpuscular Hgb Conc 33.1 g/dL (32-36); Mean Corpuscular Volume 92.5 fL (80-100); Mean Platelet Volume 11.1 fL (7.4-10.4); Monocytes # (auto) 1.43 K/uL (0.11-0.59); Monocytes % (auto) 7.8 %; Neutrophils # (auto) 14.25 K/uL (1.4-6.5); Neutrophils % (auto) 77.4 %; Platelet Count 257 K/uL (130-400); RDW Coefficient of Variation 14.7 % (11.5-14.5); RDW Standard Deviation 49.9 fL (36.4-46.3); Red Blood Count 3.99 M/uL (4.7-6.1)
[2019-05-19 07:15] LABS: iSTAT Hemoglobin 12.2 g/dl (14.0-18.0); iSTAT Ionized Calcium 1.15 mmol/l (1.12-1.32); iSTAT Potassium 3.5 mEq/L (3.3-5.0)
--- NOTE | 2019-05-19 07:22 | CT Scan Report ---
CT OF THE HEAD WITHOUT CONTRAST CLINICAL HISTORY: weakness COMPARISON STUDY: No previous studies for comparison. CT DOSE: 614.27 mGy.cm TECHNIQUE: Helical axial images of the head were obtained without IV contrast. Automated exposure con trol was utilized for the study. A dose lowering technique was utilized adhering to the principles o f ALARA. FINDINGS: No acute intracranial hemorrhage, midline shift or mass effect is present. The ventricular system is unremarkable. The basilar cisterns are patent. No extra-axial collections are present. Ther e are no findings to suggest acute dural sinus thrombosis or acute territorial infarct. No significan t calvarial abnormalities are present. Mild sinus mucosal thickening is noted. White matter hypodensi ty suggests small vessel disease. Exam is mildly compromised by artifact. IMPRESSION: No acute intracranial findings. Electronically signed by: Daquan Hamilton M.D. 05/19/2019 7:21 AM
[2019-05-19 07:32] LABS: Albumin Level 2.1 gm/dl (3.4-5.0); Calcium 8.6 mg/dl (8.5-10.1); Creatinine Clr Calc Pharmacy 29.5 ml/min; Est GFR (African American) 37.6; Est GFR (Non-African American) 32.4; Potassium 3.5 mmol/L (3.5-5.1)
--- NOTE | 2019-05-19 07:41 | CT Scan Report ---
CT OF THE ABDOMEN AND PELVIS WITHOUT CONTRAST CLINICAL HISTORY: Nausea and weakness. COMPARISON STUDY: No previous studies for comparison. TECHNIQUE: Axial images of the abdomen and pelvis were obtained without IV contrast. Images were revi ewed in the axial, sagittal, and coronal planes. Automated exposure control was utilized for the radha dy. A dose lowering technique was utilized adhering to the principles of ALARA. FINDINGS: Bibasilar opacities are superimposed upon interstitial lung disease. No pneumatosis, free a ir or portal venous gas is present. Evaluation of the abdomen and pelvis is suboptimal on this unenha nced study. Infrarenal abdominal aorta is ectatic, measuring 2.8 cm in caliber. Unenhanced images of liver, spleen, adrenal glands and pancreas are unremarkable. There is no biliary or pancreatic ductal dilatation. Water attenuation bilateral renal lesions are suboptimally assessed on this exam but fav or cysts. There may be several small hypodense bilateral renal cysts which are also suboptimally asse ssed on this unenhanced examination. As includes a 2 cm lobulated density within the mid right renal pelvis. There is no evidence for a bowel obstruction. No lymphadenopathy or ascites is noted. There i s no abscess. There are no suspicious osseous lesions. There is no hydronephrosis. IMPRESSION: 1. No acute process within the abdomen or pelvis on unenhanced exam. 2. Mild bibasilar pulmonary opacities superimposed upon interstitial lung disease. 3. Indeterminate 2 cm lobulated density within the right renal pelvis. A follow-up nonemergent renal protocol CT is recommended to exclude a solid lesion. The findings will be called[facility] at time of dictation. Electronically signed by: Daquan Hamilton M.D. 05/19/2019 7:39 AM
[2019-05-19 08:17] LABS: Albumin Globulin Ratio 0.5 (0.9-2); Bilirubin,Total 0.7 mg/dl (0.2-1); Globulin 4.2 gm/dl (2.5-4.0); Total Protein 6.3 gm/dl (6.4-8.2); Troponin I 0.201 ng/ml (0-0.045)
[2019-05-19] MEDS: PARoxetine HCl 10 MG TAB PO SCH (08:45)
[2019-05-19] MEDS: HEPARIN SOD 5,000 UNIT/0.5 ML VIAL SQ SCH ×2 (08:46→20:41)
[2019-05-19] MEDS: ACETAMINOPHEN 325 MG TAB PO PRN ×2 (09:30→19:00)
[2019-05-19] MEDS: BENZONATATE 100 MG CAPSULE PO SCH (20:41)
--- NOTE | 2019-05-19 21:58 | Hospitalist Progress Note ---
Date of Service May 19, 2019 Assessment & Plan (1) Rhabdomyolysis: Patient is a 89yo M PMH ILD, , MGUS, hypothyroid, HLD, T2DM, Depression, DJD, neuropathy, admitted for rhabdomyolysis/page/weakness -Uncertain of duration of time on the floor -reporting difficulty moving his legs and generalized weakness -CK 22,000 and will continue to trend; IV fluids at 200 mL/hr and monitor volume status -Troponin peaked at 0.201 and trending down and likely in the setting of significant rhabdomyolysis -currently denies any chest pain or cardiac symptoms -Presence of transaminitis with AST 450 and ALT 120 and again likely in setting of significant rhabdomyolysis -We will continue to monitor labs daily -Holding gabapentin -as outpatient, patient was to increase dosing however he did not like how it made him feel and was taking 200 mg twice a day -this may be contributing to dizziness unsteadiness? Versus his underlying neuropathy as the culprit, versus other (2) Renal mass: -CT -indeterminate 2 cm lobulated density within the right renal pelvis - recommending nonemergent renal protocol CT to further evaluate lesion and will await resolution of PAGE/rhabdomyolysis --Did discuss findings with patient and granddaughter and need for more tho rough CT studies to further assess -did discuss possibility of benign versus malignant possibilities and will continue to monitor -Consideration for urology consultation to weigh in on findings (3) PAGE (acute kidney injury): -Creatinine 2.09 on admission and started to trend down we will continue to monitor -Avoid nephrotoxic agents and renally dose medications (4) Weakness: -Possibly multifactorial -medications versus possible acute URI versus ongoing dehydration from chronic diarrhea versus difficulty eating -Given chronic diarrhea will do stool culture however do not suspect infectious etiology; patient also reports some difficulty with swallowing which could be playing a role in his anorexia, he thinks he can swallow efficiently however food seems to get stuck and slowly transition limiting his ability to eat. Will consult speech to give further recommendations -PT/OT (5) Diabetes mellitus: -Reports borderline diabetic -manages glucose with dietary management -A1c acceptable (6) Hypothyroidism: -Continue levothyroxine 112 mcg daily (7) DVT prophylaxis: Heparin Disposition: Await clinical improvement; updated granddaughter Guillermina over the phone ([phone]) Subjective Patient reports feeling pretty much the same. Has mild intermittent pain. Mostly complaining of fatigue today. He has been experiencing some URI symptoms mostly complaining of cough. He also reports chronic issues with looser stool and slimy white discharge. He had this evaluated by his PCP who trialed nystatin powder in the rectal area. Patient thinks this may have helped but is not completely sure. Discussed CT findings of indeterminate 2 cm lobulated density in the right renal pelvis. Patient states he has never been told about this in the past and plan to have follow-up CT scan with contrast for further identification pending laboratory improvement. Also states he has chronic issues with swallowing. He believes he is swallowing okay but experiencing a sensation of food being stuck and slowly moving down esophagus. He states he has never had this evaluated. Review of Systems Constitutional: + fatigue; no fever and no chills Ear, Nose, Mouth, Throat: + nasal congestion Respiratory: + cough; no dyspnea Cardiovascular: no chest pain, no palpitations, no lightheadedness and no edema Gastrointestinal: + diarrhea/loose stools; no abdominal pain, no nausea, no vomiting and no constipation Genitourinary: no dysuria Musculoskeletal: + body aches (Mild intermittent) Integumentary: no rash Physical Exam Constitutional: + frail appearing; no acute distress Eyes: + anicteric sclerae ENMT: Mouth: + dry oral mucous membranes Neck: trachea midline Respiratory: normal respiratory effort, lungs clear to auscultation Cardiovascular: Rate/Rhythm: regular rate and regular rhythm Gastrointestinal (Abdomen): Inspection/Auscultation: normal bowel sounds Percussion/Palpation: abdomen soft; abdomen nontender Musculoskeletal: Head/Neck/Chest: normocephalic and head atraumatic Skin: no rashes, warm and dry Neurologic: moves all extremities Psychiatric: A+Ox3, euthymic affect Results & Data Vital Signs (Past 12 Hours) Vital Signs Temp Pulse Resp BP Pulse Ox 05/19/19 16:02 36.3 C L 79 17 124/64 96 05/19/19 13:47 95 PG Care Time/CCT Total # of Minutes Spent Total Time Spent with Patient: Total time spent is greater than 50% in coordination of care (as documented) at patient's floor/unit and/or counseling patient: (1) Rhabdomyolysis Rhabdomyolysis type: non-traumatic Qualified Code(s): M62.82 - Rhabdomyolysis
[2019-05-20] MEDS: SODIUM CHLORIDE 0.9% 1000ML 1,000 ML IV SCH ×3 (01:30→11:43)
[2019-05-20] MEDS: ACETAMINOPHEN 325 MG TAB PO PRN ×2 (01:31→20:13)
[2019-05-20 03:44] LABS: Appearance Urine Clear (Clear); Bacteria Urine Automated Negative (Negative); Bilirubin Urine Negative (Negative); Blood Urine 3+ (Negative); Color Urine Yellow; Glucose Urine UA Negative (Negative); Ketones Urine Negative (Negative); Leukocyte Esterase Urine Negative (Negative); Nitrite Urine Negative (Negative); Protein Urine 1+ (Negative); RBC Urine Automated 0-4 /hpf (0-4); Specific Gravity Urine 1.019 (1.000-1.030); Urobilinogen Urine Negative (Negative); pH Urine 5.5 (4.5-7.5)
[2019-05-20 05:32] LABS: Hematocrit (blood only) 33.9 % (42-52); Hemoglobin 11.2 g/dL (14.0-18.0); Mean Corpuscular Hemoglobin 30.1 pg (25-34); Mean Corpuscular Volume 91.1 fL (80-100); Mean Platelet Volume 11.8 fL (7.4-10.4); Platelet Count 250 K/uL (130-400); RDW Coefficient of Variation 14.9 % (11.5-14.5); RDW Standard Deviation 50.1 fL (36.4-46.3); Red Blood Count 3.72 M/uL (4.7-6.1); White Blood Count 19.32 K/uL (4.8-10.8)
[2019-05-20] MEDS: LEVOTHYROXINE SODIUM 112 MCG TABLET PO SCH (05:39)
[2019-05-20 05:57] LABS: Albumin Level 1.7 gm/dl (3.4-5.0); BUN Creatinine Ratio 22.9 (10-20); Bilirubin,Total 0.6 mg/dl (0.2-1); Calcium 7.8 mg/dl (8.5-10.1); Creatinine Clr Calc Pharmacy 36.3 ml/min; Est GFR (African American) 48.3; Est GFR (Non-African American) 41.7; Potassium 3.2 mmol/L (3.5-5.1)
[2019-05-20 06:29] LABS: Albumin Globulin Ratio 0.4 (0.9-2); Globulin 4.1 gm/dl (2.5-4.0); Total Protein 5.8 gm/dl (6.4-8.2)
[2019-05-20] MEDS: BENZONATATE 100 MG CAPSULE PO SCH ×3 (09:43→20:14)
[2019-05-20] MEDS: PARoxetine HCl 10 MG TAB PO SCH (09:43)
[2019-05-20] MEDS: HEPARIN SOD 5,000 UNIT/0.5 ML VIAL SQ SCH ×2 (09:43→21:04)
[2019-05-20] MEDS: POTASSIUM CHLORIDE 20 MEQ in SODIUM CHLORIDE 0.9% 1000ML 1,000 ML IV SCH (13:30)
--- NOTE | 2019-05-20 22:35 | Hospitalist Progress Note ---
Date of Service May 20, 2019 Assessment & Plan (1) Rhabdomyolysis: Patient is a 89yo M PMH ILD, , MGUS, hypothyroid, HLD, T2DM, Depression, DJD, neuropathy, admitted for rhabdomyolysis/page/weakness -Uncertain of duration of time on the floor -reporting difficulty moving his legs and generalized weakness which was occurring prior to fall -CK peaked at 22,000 and currently now at 7200; IV fluids to include 20 mEq K at 80 mL/hr given mod. aortic stenosis -Troponin peaked at 0.201 and trending down and likely in the setting of significant traumatic rhabdomyolysis/demand ischemia -currently denies any chest pain or cardiac symptoms -- Will order repeat echo to further assess given vague descriptions of not feeling well -- Echo (Mar 2019) - EF 60-65%, moderate , mild tricuspid regurg, and grade I diastolic dysfunction -Presence of transaminitis with AST 304 and ALT 142 and again likely in setting of significant rhabdomyolysis -We will continue to monitor labs daily -Holding gabapentin -as outpatient, patient was to increase dosing however he did not like how it made him feel and was taking 200 mg twice a day -this may be contributing to dizziness unsteadiness? Versus his underlying neuropathy as the culprit, versus other - EMG from December 2018 - remarkable for underlying polyneuropathy involving sensory and motor fibers (2) Renal mass: -CT -indeterminate 2 cm lobulated density within the right renal pelvis -recommending nonemergent renal protocol CT to further evaluate lesion and will await resolution of PAGE/rhabdomyolysis -- Could consider renal U/S to assess for solidarity but ultimately could need more involved testing if this is confirmed --Did discuss findings with patient and granddaughter and need for more thorough studies to further assess -did discuss possibility of benign versus malignant etiologies and will continue to monitor -Consideration for urology consultation to weigh in on findings (3) PAGE (acute kidney injury): -Creatinine 2.09 on admission and started to trend down we will continue to monitor -Avoid nephrotoxic agents and renally dose medications (4) Weakness: -Possibly multifactorial -medications versus possible acute URI versus ongoing dehydration from chronic diarrhea versus difficulty eating -Given chronic diarrhea will do stool culture however do not suspect infectious etiology; patient also reports some difficulty with swallowing which could be playing a role in his anorexia, he thinks he can swallow efficiently however food seems to get stuck and slowly transition limiting his ability to eat. Will consult speech to give further recommendations - WBC remains elevated but carries a diagnosis of MGUS - typically MGUS is asymptomatic but can cause weakness - given MGUS could consider multiple myeloma vs lymphoma? polymyalgia rheumatica? -- Per review of PCP notes - was referred to Hematology but due to his being sick before she passed he was not able to go then deferred on F/U - As discussed with granddaughter - it is possible this could be depression causing some of the worsening of symptoms - he does appear rather flat - lost his and brother recently -PT/OT (5) Diabetes mellitus: -Reports borderline diabetic -manages glucose with dietary management -A1c acceptable (6) Hypothyroidism: -Continue levothyroxine 112 mcg daily (7) DVT prophylaxis: Heparin Disposition: Await clinical improvement; updated granddaughter Guillermina today Subjective Appears more drowsy today but easily wakes up and converses. Does not remember speaking to me yesterday. Gives very vague answers when trying to decipher why he is not feeling well. Just states he isn't well. Denies CP or SOB. No abdominal pain. Does report fatigue and cough but that is about as much detail he is giving. Did re-discuss plan and current findings. He labs grossly are improving. Discussed with granddaughter Guillermina in the hallway as I ran into her on her way to the patient's room. She states he normally has a very sharp mind and has not noticed any confusion at home as I did discuss he was more sleepy today and seems to be a little forgetful. She was concerned about his symptoms possibly being related to depression. The patient recently lost his and brother. She states currently she is the only family as she was the only child of his only brother. She does feel that he could be depressed. Given the vague descriptions he gives of why he feels bad this definitely could be contributing. Discussed that currently this may be multifactorial between the rhabdo/dehydration. Also discussed repeating an echo to further evaluate his heart. As well, given the mass on CT there is question this could be a solid tumor which I discussed with her that worst case scenario could be a cancer mass which could contribute to some of his symptoms Review of Systems Constitutional: + fatigue and + anorexia; no fever and no chills Ear, Nose, Mouth, Throat: + nasal congestion Respiratory: + cough; no dyspnea Cardiovascular: no chest pain, no lightheadedness and no edema Gastrointestinal: + diarrhea/loose stools; no abdominal pain, no nausea, no vomiting and no constipation Genitourinary: no dysuria Musculoskeletal: + body aches (Mild intermittent) Integumentary: no rash Neurologic: + falls Physical Exam Constitutional: + frail appearing; no acute distress Eyes: + anicteric sclerae ENMT: Mouth: + dry oral mucous membranes Neck: trachea midline Respiratory: normal respiratory effort, lungs clear to auscultation Cardiovascular: Rate/Rhythm: regular rate and regular rhythm Gastrointestinal (Abdomen): Inspection/Auscultation: normal bowel sounds Percussion/Palpation: abdomen soft; abdomen nontender Musculoskeletal: Head/Neck/Chest: normocephalic and head atraumatic Skin: no rashes, warm and dry Neurologic: moves all extremities Psychiatric: A+Ox3, euthymic affect Results & Data Vital Signs (Past 12 Hours) Vital Signs Temp Pulse Resp BP Pulse Ox 05/20/19 20:12 36.9 C 05/20/19 17:08 36.9 C 95 H 20 96 05/20/19 15:30 37.8 C H 84 18 135/73 95 PG Care Time/CCT Total # of Minutes Spent Total Time Spent with Patient: Total time spent is greater than 50% in coordination of care (as documented) at patient's floor/unit and/or counseling patient: (1) Rhabdomyolysis Rhabdomyolysis type: non-traumatic Qualified Code(s): M62.82 - Rhabdomyolysis
[2019-05-21] MEDS: POTASSIUM CHLORIDE 20 MEQ in SODIUM CHLORIDE 0.9% 1000ML 1,000 ML IV SCH (02:12)
[2019-05-21] MEDS: LEVOTHYROXINE SODIUM 112 MCG TABLET PO SCH (04:35)
[2019-05-21 07:14] LABS: Albumin Level 1.7 gm/dl (3.4-5.0); BUN Creatinine Ratio 22.4 (10-20); Calcium 8.2 mg/dl (8.5-10.1); Est GFR (African American) 64.4; Est GFR (Non-African American) 55.5; Potassium 3.2 mmol/L (3.5-5.1)
[2019-05-21 07:28] LABS: Albumin Globulin Ratio 0.4 (0.9-2); Bilirubin,Total 0.6 mg/dl (0.2-1); Globulin 4.2 gm/dl (2.5-4.0); Total Protein 5.9 gm/dl (6.4-8.2)
--- NOTE | 2019-05-21 07:32 | XRay Report ---
XR chest 1V portable CLINICAL HISTORY: Cough/SOB COMPARISON STUDY: Chest radiograph May 19, 2019. FINDINGS: There is no pneumothorax. There are suspected small bilateral pleural effusions. Mild inter stitial thickening has increased with patchy bibasilar opacities. IMPRESSION: 1. Increase in reticulonodular interstitial thickening and patchy bibasilar opacities. The findings m ay reflect pulmonary edema or an infectious process superimposed upon interstitial lung disease. 2. Small bilateral pleural effusions. Electronically signed by: Daquan Hamilton M.D. 05/21/2019 7:31 AM
[2019-05-21] MEDS ORDERED: POTASSIUM CHLORIDE 20 MEQ TABCR PO STA (08:19)
[2019-05-21] MEDS: PARoxetine HCl 10 MG TAB PO SCH (09:33)
[2019-05-21] MEDS: BENZONATATE 100 MG CAPSULE PO SCH ×3 (09:33→21:02)
[2019-05-21] MEDS: HEPARIN SOD 5,000 UNIT/0.5 ML VIAL SQ SCH ×2 (09:34→21:02)
[2019-05-21] MEDS ORDERED: Nursing to Pharmacy Communication ONE (09:41)
[2019-05-21] MEDS: cefTRIAXone SODIUM 1,000 MG in DEXTROSE 5% 50 ML IV SCH (10:30)
[2019-05-21] MEDS: NSS + 20MEQ KCL 20 MEQ/1,000 ML BAG IV SCH (16:01)
[2019-05-21] MEDS: ACETAMINOPHEN 325 MG TAB PO PRN ×2 (17:48→23:25)
--- NOTE | 2019-05-21 19:07 | Hospitalist Progress Note ---
Date of Service May 21, 2019 Assessment & Plan (1) Rhabdomyolysis: Patient is a 89yo M PMH ILD, , MGUS, hypothyroid, HLD, T2DM, Depression, DJD, neuropathy, admitted for rhabdomyolysis/page/weakness -Uncertain of duration of time on the floor -reporting difficulty moving his legs and generalized weakness which was occurring prior to fall -CK peaked at 22,000 and currently now at 3300; IV fluids to include 20 mEq K at 80 mL/hr given mod. aortic stenosis -Troponin peaked at 0.201 and trended down and likely in the setting of significant traumatic rhabdomyolysis/demand ischemia -currently denies any chest pain or cardiac symptoms -- Echo (Mar 2019) - EF 60-65%, moderate , mild tricuspid regurg, and grade I diastolic dysfunction - repeat echo was unchanged -Presence of transaminitis with AST 190 and ALT 144 and again likely in setting of significant rhabdomyolysis -We will continue to monitor labs daily -Holding gabapentin -as outpatient, patient was to increase dosing however he did not like how it made him feel and was taking 200 mg twice a day -this may be contributing to dizziness unsteadiness? Versus his underlying neuropathy as the culprit, versus other - possibly restart to assist with neuropathy symptoms? - EMG from December 2018 - remarkable for underlying polyneuropathy involving sensory and motor fibers (2) Renal mass: -CT -indeterminate 2 cm lobulated density within the right renal pelvis - recommending nonemergent renal protocol CT to further evaluate lesion and will await resolution of PAGE/rhabdomyolysis -- Could consider renal U/S to assess for solidarity but ultimately could need more involved testing if this is confirmed --Did discuss findings with patient and granddaughter and need for more thorough studies to further assess -did discuss possibility of benign versus malignant etiologies and will continue to monitor -Consideration for urology consultation to weigh in on findings (3) PAGE (acute kidney injury): -Creatinine 2.09 on admission and now normalized -Avoid nephrotoxic agents and renally dose medications (4) Weakness: -Possibly multifactorial -medications versus possible acute URI versus ongoing dehydration from chronic diarrhea versus difficulty eating -Given chronic diarrhea, stool culture checked an unremarkable; patient also reports some difficulty with swallowing which could be playing a role in his anorexia, he thinks he can swallow efficiently however food seems to get stuck and slowly transition limiting his ability to eat. May need to order a video barium swallow to assess also as discussed with granddaughter may consider appetite stimulant - WBC remains elevated but carries a diagnosis of MGUS - typically MGUS is asymptomatic but can cause weakness - given MGUS could consider multiple myeloma vs lymphoma? polymyalgia rheumatica? -- Per review of PCP notes - was referred to Hematology but due to his being sick before she passed he was not able to go then deferred on F/U - As discussed with granddaughter - it is possible this could be depression causing some of the worsening of symptoms - he does appear rather flat but slightly improved today - lost his and brother recently -PT/OT (5) Diabetes mellitus: -Reports borderline diabetic -manages glucose with dietary management -A1c acceptable (6) Hypothyroidism: -Continue levothyroxine 112 mcg daily (7) DVT prophylaxis: Heparin Disposition: Await clinical improvement and likely rehab on D/C; updated granddaughter Guillermina today Subjective Reports that he may feel a bit better especially since getting washed up today. Looks more energetic and talkative/interactive. But doesn't weigh in much on how he feels. Still having issues with swallowing which is bothersome to him. Feels he has a little more strength today as he worked with therapy but states his legs are just weak. Continues to have a cough but denies SOB/CP. Review of Systems Constitutional: + fatigue and + anorexia; no fever and no chills Ear, Nose, Mouth, Throat: + nasal congestion Respiratory: + cough; no dyspnea Cardiovascular: no chest pain, no palpitations and no lightheadedness Gastrointestinal: no abdominal pain, no nausea, no vomiting, no constipation and no diarrhea/loose stools Genitourinary: no dysuria Integumentary: no rash Neurologic: + falls, + generalized weakness, + tingling and + numbness Physical Exam Constitutional: + frail appearing; no acute distress Eyes: + anicteric sclerae Neck: trachea midline Respiratory: normal respiratory effort, lungs clear to auscultation Cardiovascular: Rate/Rhythm: regular rate and regular rhythm Gastrointestinal (Abdomen): Inspection/Auscultation: normal bowel sounds Percussion/Palpation: abdomen soft; abdomen nontender Musculoskeletal: Head/Neck/Chest: normocephalic and head atraumatic Skin: no rashes, warm and dry Neurologic: moves all extremities Psychiatric: A+Ox3, euthymic affect Results & Data Vital Signs (Past 12 Hours) Vital Signs Temp Pulse Pulse Resp BP Pulse Ox 05/21/19 18:18 138/66 05/21/19 17:29 86 18 156/80 H 97 05/21/19 15:28 36.6 C 79 17 98 05/21/19 08:11 36.7 C 83 16 144/74 H 95 PG Care Time/CCT Total # of Minutes Spent Total Time Spent with Patient: Total time spent is greater than 50% in coordination of care (as documented) at patient's floor/unit and/or counseling patient: (1) Rhabdomyolysis Rhabdomyolysis type: non-traumatic Qualified Code(s): M62.82 - Rhabdomyolysis
[2019-05-22] MEDS: NSS + 20MEQ KCL 20 MEQ/1,000 ML BAG IV SCH (04:32)
[2019-05-22] MEDS: LEVOTHYROXINE SODIUM 112 MCG TABLET PO SCH (05:53)
[2019-05-22] MEDS: cefTRIAXone SODIUM 1,000 MG in DEXTROSE 5% 50 ML IV SCH (08:16)
[2019-05-22] MEDS: BENZONATATE 100 MG CAPSULE PO SCH ×3 (08:17→20:51)
[2019-05-22 08:18] LABS: Hematocrit (blood only) 35.5 % (42-52); Hemoglobin 11.7 g/dL (14.0-18.0); Mean Corpuscular Hemoglobin 30.3 pg (25-34); Mean Platelet Volume 11.4 fL (7.4-10.4); Platelet Count 321 K/uL (130-400); RDW Coefficient of Variation 15.4 % (11.5-14.5); RDW Standard Deviation 51.8 fL (36.4-46.3); Red Blood Count 3.86 M/uL (4.7-6.1); White Blood Count 16.94 K/uL (4.8-10.8)
[2019-05-22] MEDS: HEPARIN SOD 5,000 UNIT/0.5 ML VIAL SQ SCH ×2 (08:18→20:51)
[2019-05-22 08:55] LABS: Albumin Level 1.8 gm/dl (3.4-5.0); BUN Creatinine Ratio 22.5 (10-20); Creatinine Clr Calc Pharmacy 51.3 ml/min; Est GFR (African American) 73.4; Est GFR (Non-African American) 63.4; Potassium 3.7 mmol/L (3.5-5.1)
[2019-05-22 09:05] LABS: Albumin Globulin Ratio 0.4 (0.9-2); Bilirubin,Total 0.5 mg/dl (0.2-1); Globulin 4.5 gm/dl (2.5-4.0); Total Protein 6.3 gm/dl (6.4-8.2)
[2019-05-22] MEDS: ACETAMINOPHEN 325 MG TAB PO PRN (10:37)
--- NOTE | 2019-05-22 15:11 | Hospitalist Progress Note ---
Date of Service May 22, 2019 Assessment & Plan (1) Rhabdomyolysis: Patient is a 89yo M PMH ILD, , MGUS, hypothyroid, HLD, T2DM, Depression, DJD, neuropathy, admitted for rhabdomyolysis/page/weakness -Uncertain of duration of time on the floor -reporting difficulty moving his legs and generalized weakness which was occurring prior to fall -CK peaked at 22,000 and currently now at 1300; Hold further IVF at this time and trend CK - increased crackles/peripheral edema and will be cautious given moderate -Troponin peaked at 0.201 and trended down and likely in the setting of significant traumatic rhabdomyolysis/demand ischemia -currently denies any chest pain or cardiac symptoms -- Echo (Mar 2019) - EF 60-65%, moderate , mild tricuspid regurg, and grade I diastolic dysfunction - repeat echo was unchanged -Presence of transaminitis with AST 122 and ALT 138 and again likely in setting of significant rhabdomyolysis -We will continue to monitor labs daily -Holding gabapentin -as outpatient, patient was to increase dosing however he did not like how it made him feel and was taking 200 mg twice a day -this may be contributing to dizziness unsteadiness? Versus his underlying neuropathy as the culprit, versus other - possibly restart to assist with neuropathy symptoms? -- However with talking to him on 05/22 it seems that it may not have been so much he couldn't tolerate it rather he didn't think it was working since it needed increased so much but did discuss how that is common with this medication - EMG from December 2018 - remarkable for underlying polyneuropathy involving sensory and motor fibers (2) Renal mass: -CT -indeterminate 2 cm lobulated density within the right renal pelvis - recommending nonemergent renal protocol CT to further evaluate lesion and will await resolution of PAGE/rhabdomyolysis -- Could consider renal U/S to assess for solidarity but ultimately could need more involved testing if this is confirmed --Did discuss findings with patient and Guillermina and need for more thorough studies to further assess -did discuss possibility of benign versus malignant etiologies and will continue to monitor -Consideration for urology consultation to weigh in on findings (3) PAGE (acute kidney injury): -Creatinine 2.09 on admission and now normalized -Avoid nephrotoxic agents and renally dose medications (4) Weakness: -Possibly multifactorial -medications versus possible pneumonia versus ongoing dehydration from chronic diarrhea versus difficulty eating -Given chronic diarrhea, stool culture checked and unremarkable - also appears maybe this "diarrhea" is truly stool leakage due to constipation as he states he can get a discharge. Review of CT reveals significant stool largely in the R side of abdomen - will use Miralax PRN and Colace BID -Patient also reports some difficulty with swallowing which could be playing a role in his anorexia, he thinks he can swallow efficiently however food seems to get stuck and slowly transition limiting his ability to eat. May need to order a video barium swallow to assess; will trial Remeron 7.5 mg HS to help with sleep, appetite, depression - could slowly taper Paxil vs usage together - WBC remains elevated but carries a diagnosis of MGUS - typically MGUS is asymptomatic but can cause weakness - given MGUS could consider multiple myeloma vs lymphoma? polymyalgia rheumatica? -- Per review of PCP notes - was referred to Hematology but due to his being sick before she passed he was not able to go then deferred on F/U - Possible pneumonia on imaging - seems WBC is improving since antibiotics - continue Rocephin 1 g IV daily x 5 days total - As discussed with granddaughter - it is possible this could be depression causing some of the worsening of symptoms - he does appear rather flat but seems to be improving the past couple days - lost his and brother recently -PT/OT (5) Diabetes mellitus: -Reports borderline diabetic -manages glucose with dietary management -A1c acceptable (6) Hypothyroidism: - TSH - WNL -Continue levothyroxine 112 mcg daily (7) DVT prophylaxis: Heparin Disposition: Planning on [facility] - no auth needed; patient obtains most meds through OR; updated Rayna Subjective Patient reports feeling a little bit better today. States his biggest complaint is he would like to walk more. Labs continue to improve. Discussed options for improving appetite. Patient states he gave his protein shakes and never care for them himself. He is agreeing to trying a medication to help with eating. [facility]. Going to proceed with a swallowing study to evaluate his symptoms of poor bolus movement throughout the esophagus. He verbalizes no new complaints at this time. Review of Systems Constitutional: + fatigue and + anorexia; no fever and no chills Respiratory: + cough; no dyspnea Cardiovascular: no chest pain and no palpitations Gastrointestinal: no abdominal pain, no nausea, no vomiting, no constipation and no diarrhea/loose stools Genitourinary: no dysuria Integumentary: no rash Neurologic: + generalized weakness, + tingling and + numbness Physical Exam Constitutional: + frail appearing; no acute distress Eyes: + anicteric sclerae Neck: trachea midline Respiratory: normal respiratory effort Auscultation: + crackles (Bases bilaterally) Cardiovascular: Rate/Rhythm: regular rate and regular rhythm Gastrointestinal (Abdomen): Inspection/Auscultation: + abdomen distended (Mild) and normal bowel sounds Percussion/Palpation: abdomen soft; abdomen nontender Musculoskeletal: Head/Neck/Chest: normocephalic and head atraumatic Skin: no rashes, warm and dry Neurologic: moves all extremities Psychiatric: A+Ox3, euthymic affect Results & Data Vital Signs (Past 12 Hours) Vital Signs Temp Pulse Resp BP Pulse Ox 05/22/19 07:12 36.4 C L 66 18 146/76 H 97 PG Care Time/CCT Total # of Minutes Spent Total Time Spent with Patient: Total time spent is greater than 50% in coordi nation of care (as documented) at patient's floor/unit and/or counseling patient: (1) Rhabdomyolysis Rhabdomyolysis type: non-traumatic Qualified Code(s): M62.82 - Rhabdomyolysis
[2019-05-22] MEDS: DOCUSATE SODIUM 100 MG CAP PO SCH (20:48)
[2019-05-22] MEDS: PARoxetine HCl 10 MG TAB PO SCH (20:50)
[2019-05-22] MEDS: MIRTAZAPINE TAB 15 MG TAB PO SCH (20:52)
[2019-05-23] MEDS: LEVOTHYROXINE SODIUM 112 MCG TABLET PO SCH (06:10)
[2019-05-23] MEDS: cefTRIAXone SODIUM 1,000 MG in DEXTROSE 5% 50 ML IV SCH (09:05)
[2019-05-23] MEDS: HEPARIN SOD 5,000 UNIT/0.5 ML VIAL SQ SCH ×2 (09:05→21:25)
[2019-05-23] MEDS: DOCUSATE SODIUM 100 MG CAP PO SCH (09:05)
[2019-05-23 09:30] LABS: Hematocrit (blood only) 36.3 % (42-52); Hemoglobin 12.2 g/dL (14.0-18.0); Mean Corpuscular Hgb Conc 33.6 g/dL (32-36); Mean Corpuscular Volume 92.1 fL (80-100); Platelet Count 368 K/uL (130-400); RDW Standard Deviation 51.1 fL (36.4-46.3); Red Blood Count 3.94 M/uL (4.7-6.1); White Blood Count 18.02 K/uL (4.8-10.8)
[2019-05-23 09:57] LABS: Albumin Level 1.8 gm/dl (3.4-5.0); BUN Creatinine Ratio 19.8 (10-20); Calcium 8.9 mg/dl (8.5-10.1); Creatinine Clr Calc Pharmacy 51.3 ml/min; Est GFR (African American) 73.4; Est GFR (Non-African American) 63.4; Potassium 3.5 mmol/L (3.5-5.1)
[2019-05-23 10:00] LABS: Albumin Globulin Ratio 0.4 (0.9-2); Bilirubin,Total 0.5 mg/dl (0.2-1); Globulin 4.7 gm/dl (2.5-4.0); Total Protein 6.5 gm/dl (6.4-8.2)
[2019-05-23] MEDS: BENZONATATE 100 MG CAPSULE PO SCH ×3 (10:40→21:24)
--- NOTE | 2019-05-23 10:48 | Fluoroscopy Report ---
FL barium swallow CLINICAL HISTORY: r/o esophageal dysfunction COMPARISON STUDY: None FLUOROSCOPY TIME: 1.9 minutes NUMBER OF FLUOROSCOPIC IMAGES: 26 FINDINGS: Patient had disordered oral and hypopharyngeal motility. Aspiration present. There is no si gnificant cough reflex. The esophagus demonstrates moderate irritability throughout. There is no significant gastroesophageal reflux. IMPRESSION: . 1. Moderate mid to distal esophageal dysmotility/spasm. 2. Aspiration. The above report was generated using voice recognition software. It may contain grammatical, syntax or spelling errors. Electronically signed by: Kang Tena M.D. 05/23/2019 10:24 AM
--- NOTE | 2019-05-23 12:08 | XRay Report ---
XR chest 1V portable CLINICAL HISTORY: Chest pain and shortness of breath. COMPARISON STUDY: 05/21/2019 FINDINGS: The heart remains enlarged. There is persistent diffuse elevation of interstitium with more focal nodular airspace opacities within the right midlung zone. Trace pleural effusions are suspecte d. Diagnostic considerations remain pulmonary edema versus a bilateral pneumonitis.[ IMPRESSION: Persistent bilateral interstitial thickening with more focal areas of patchy nodular opac ity most pronounced in the right midlung zone. Diagnostic considerations remain pulmonary edema versu s a bilateral pneumonitis. Electronically signed by: Kulwinder Meléndez M.D. 05/23/2019 12:07 PM
[2019-05-23] MEDS ORDERED: PIPERACILL/TAZOBAC CONSULT ACTIVE PRN (12:15)
[2019-05-23] MEDS: PANTOprazole 40 MG TAB PO SCH ×2 (12:17→21:23)
[2019-05-23] MEDS ORDERED: PIPERACILLIN/TAZOBACTAM 3.375 GM in DEXTROSE 5% 100 ML IV ONE (12:45)
[2019-05-23] MEDS ORDERED: FUROSEMIDE 40 MG in SYRINGE 0 ML IV ONE (16:49)
[2019-05-23] MEDS: PIPERACILLIN/TAZOBACTAM 3.375 GM in DEXTROSE 5% 100 ML IV SCH (17:30)
--- NOTE | 2019-05-23 19:25 | Hospitalist Progress Note ---
Date of Service May 23, 2019 Assessment & Plan (1) Rhabdomyolysis: Patient is a 89yo M PMH ILD, , MGUS, hypothyroid, HLD, T2DM, Depression, DJD, neuropathy, admitted for rhabdomyolysis/page/weakness -Uncertain of duration of time on the floor -reporting difficulty moving his legs and generalized weakness which was occurring prior to fall -CK peaked at 22,000 and currently now at 500; Hold further IVF at this time and trend CK - increased crackles/peripheral edema and will be cautious given moderate and will give Lasix IV x1 dose monitor response -Troponin peaked at 0.201 and trended down and likely in the setting of significant traumatic rhabdomyolysis/demand ischemia -- Echo (Mar 2019) - EF 60-65%, moderate , mild tricuspid regurg, and grade I diastolic dysfunction - repeat echo was unchanged -Presence of transaminitis which is improving and again likely in setting of significant rhabdomyolysis -We will continue to monitor labs daily - EMG from December 2018 - remarkable for underlying polyneuropathy involving sensory and motor fibers (2) Renal mass: -CT -indeterminate 2 cm lobulated density within the right renal pelvis - recommending nonemergent renal protocol CT to further evaluate lesion and will await resolution of PAGE/rhabdomyolysis -- Could consider renal U/S to assess for solidarity but ultimately could need more involved testing if this is confirmed --Did discuss findings with patient and Guillermina and need for more thorough studies to further assess -did discuss possibility of benign versus malignant etiologies and will continue to monitor -Consideration for urology consultation to weigh in on findings (3) PAGE (acute kidney injury): -Creatinine 2.09 on admission and now normalized -Avoid nephrotoxic agents and renally dose medications (4) Weakness: -Possibly multifactorial -medications versus possible pneumonia versus ongoing dehydration from chronic diarrhea versus difficulty eating -Given chronic diarrhea, stool culture checked and unremarkable - also appears maybe this "diarrhea" is truly stool leakage due to constipation as he states he can get a discharge. Review of CT reveals significant stool largely in the R side of abdomen -Patient also reports some difficulty with swallowing which could be playing a role in his anorexia, he thinks he can swallow efficiently however food seems to get stuck and slowly transition limiting his ability to eat; will trial Remeron 7.5 mg HS to help with sleep, appetite, depression - could slowly taper Paxil vs usage together --Barium swallow reveals trace aspiration which is likely incidental given the technique of swallowing during the study; also reveals moderate mid to distal esophageal dysmotility/spasm which may correlate given his age -we will t ry Protonix 40 mg twice daily to see if symptoms improve - WBC remains elevated but carries a diagnosis of MGUS - typically MGUS is asymptomatic but can cause weakness - given MGUS could consider multiple myeloma vs lymphoma? polymyalgia rheumatica? -- Per review of PCP notes - was referred to Hematology but due to his being sick before she passed he was not able to go then deferred on F/U - Possible pneumonia on imaging -WBC was improving but now increasing today but remains afebrile -we will broaden antibiotics to Zosyn given possibility of aspiration --CXR on 05/23 revealed was some worsening of midlung opacity which correlates with patient's ongoing chest pain -possibly edema versus pneumonitis versus pneumonia -given more immobility may need to consider CTA to rule out PE however no other correlating symptoms to suggest this; could perform Doppler ultrasounds to rule out DVT given lower extremity edema -Given possibility of pneumonitis and even possibility of polymyalgia rheumatica can trial prednisone 20 mg daily x5 days - As discussed with granddaughter - it is possible this could be depression causing some of the worsening of symptoms - he does appear rather flat but seems to be improving the past couple days - lost his and brother recently -PT/OT (5) Diabetes mellitus: -Reports borderline diabetic -manages glucose with dietary management --Given poor appetite would allow liberalize diet to include any food patient would prefer to eat over strict diabetic management -A1c acceptable (6) Hypothyroidism: - TSH - WNL -Continue levothyroxine 112 mcg daily (7) DVT prophylaxis: Heparin Disposition: Planning on [facility] - no auth needed; not medically optimized at this time; [facility]; updated [facility] Subjective Visited patient on multiple occasions today and updated Guillermina over the phone. Early in the morning patient states he has right-sided chest pain that has been going on since yesterday. EKG without ischemic changes. He reports that it is present when he takes a deep breath. He also notices his cough is more prevalent today. CXR does show some more focal patchy opacities most pronounced in the right midlung which correlates with the patient's pain. Suggestions of possible pulmonary edema versus pneumonitis. Given swelling due to needing multiple fluids will give dose of Lasix and monitor response. Patient is afebrile, heart rate stable, and oxygenating appropriately on room air. Unlikely this is PE however will need to explore further options pending clinical response. Due to worsening leukocytosis did broaden antibiotics to Zosyn. Review of Systems Constitutional: + fatigue and + anorexia; no fever and no chills Respiratory: + cough and + pain on inspiration; no dyspnea and no sputum production Cardiovascular: + chest pain and + edema; no radiating jaw, neck or arm pain, no palpitations and no lightheadedness Gastrointestinal: no abdominal pain, no nausea, no vomiting, no constipation and no diarrhea/loose stools Genitourinary: no dysuria Musculoskeletal: + body aches (Mild intermittent) Integumentary: no rash Neurologic: + generalized weakness, + tingling and + numbness Physical Exam Constitutional: + frail appearing; no acute distress Eyes: + anicteric sclerae Neck: trachea midline Respiratory: normal respiratory effort, lungs clear to auscultation normal respiratory effort Auscultation: + crackles (Bases bilaterally) Cardiovascular: Rate/Rhythm: regular rate and regular rhythm Gastrointestinal (Abdomen): Inspection/Auscultation: + abdomen distended (Mild) and normal bowel sounds Percussion/Palpation: abdomen soft; abdomen nontender Musculoskeletal: Head/Neck/Chest: normocephalic and head atraumatic Skin: no rashes, warm and dry Neurologic: moves all extremities Psychiatric: A+Ox3, euthymic affect Results & Data Vital Signs (Past 12 Hours) Vital Signs Temp Pulse Pulse Resp BP BP Pulse Ox 05/23/19 15:17 36.5 C 71 16 163/84 H 95 05/23/19 09:35 75 150/75 H 05/23/19 07:55 36.3 C L 77 18 167/73 H 95 PG Care Time/CCT Total # of Minutes Spent Total Time Spent with Patient: Total time spent is greater than 50% in coordination of care (as documented) at patient's floor/unit and/or counseling patient: (1) Rhabdomyolysis Rhabdomyolysis type: non-traumatic Qualified Code(s): M62.82 - Rhabdomyolysis
[2019-05-23] MEDS: PARoxetine HCl 10 MG TAB PO SCH (21:23)
[2019-05-23] MEDS: ACETAMINOPHEN 325 MG TAB PO PRN (21:24)
[2019-05-23] MEDS: GABAPENTIN 100 MG CAP PO SCH (21:24)
[2019-05-23] MEDS: MIRTAZAPINE TAB 15 MG TAB PO SCH (21:53)
[2019-05-24] MEDS: PIPERACILLIN/TAZOBACTAM 3.375 GM in DEXTROSE 5% 100 ML IV SCH ×3 (01:20→18:48)
[2019-05-24] MEDS: LEVOTHYROXINE SODIUM 112 MCG TABLET PO SCH (05:20)
[2019-05-24] MEDS: predniSONE 20 MG TAB PO SCH (09:06)
[2019-05-24] MEDS: PANTOprazole 40 MG TAB PO SCH ×2 (09:06→20:32)
[2019-05-24] MEDS: HEPARIN SOD 5,000 UNIT/0.5 ML VIAL SQ SCH ×2 (09:06→20:33)
[2019-05-24] MEDS: GABAPENTIN 100 MG CAP PO SCH ×2 (09:06→20:32)
[2019-05-24] MEDS: BENZONATATE 100 MG CAPSULE PO SCH ×3 (09:06→20:33)
[2019-05-24 09:21] LABS: Hematocrit (blood only) 39.2 % (42-52); Mean Corpuscular Hemoglobin 30.7 pg (25-34); Mean Corpuscular Hgb Conc 33.2 g/dL (32-36); Mean Corpuscular Volume 92.7 fL (80-100); Platelet Count 413 K/uL (130-400); RDW Coefficient of Variation 15.2 % (11.5-14.5); RDW Standard Deviation 51.3 fL (36.4-46.3); Red Blood Count 4.23 M/uL (4.7-6.1); White Blood Count 14.75 K/uL (4.8-10.8)
[2019-05-24 09:50] LABS: BUN Creatinine Ratio 16.1 (10-20); Calcium 9.1 mg/dl (8.5-10.1); Creatinine Clr Calc Pharmacy 42.3 ml/min; Est GFR (African American) 58.2; Est GFR (Non-African American) 50.2; Potassium 3.2 mmol/L (3.5-5.1)
--- NOTE | 2019-05-24 18:38 | Hospitalist Progress Note ---
Date of Service May 24, 2019 Assessment & Plan (1) Rhabdomyolysis: Patient is a 89yo M PMH ILD, , MGUS, hypothyroid, HLD, T2DM, Depression, DJD, neuropathy, admitted for rhabdomyolysis/page/weakness -Uncertain of duration of time on the floor -reporting difficulty moving his legs and generalized weakness which was occurring prior to fall -CK peaked at 22,000 and currently now at 300; Holding further IVF at this time and trend CK - increased crackles/peripheral edema and will be cautious given moderate and given Lasix IV x1 on 05/23 -Troponin peaked at 0.201 and trended down and likely in the setting of significant traumatic rhabdomyolysis/demand ischemia -- Echo (Mar 2019) - EF 60-65%, moderate , mild tricuspid regurg, and grade I diastolic dysfunction - repeat echo was unchanged from prior -Presence of transaminitis which is resolving and again likely in setting of significant rhabdomyolysis -We will continue to monitor labs daily - EMG from December 2018 - remarkable for underlying polyneuropathy involving sensory and motor fibers (2) Renal mass: -CT -indeterminate 2 cm lobulated density within the right renal pelvis - recommending nonemergent renal protocol CT to further evaluate lesion and will await resolution of PAGE/rhabdomyolysis -- Could consider renal U/S to assess for solidarity but ultimately could need more involved testing if this is confirmed --Did discuss findings with patient and Guillermina and need for more thorough studies to further assess -did discuss possibility of benign versus malignant etiologies and will continue to monitor -Consideration for urology consultation to weigh in on findings (3) PAGE (acute kidney injury): -Creatinine 2.09 on admission and now normalized -Avoid nephrotoxic agents and renally dose medications (4) Weakness: -Possibly multifactorial -medications versus possible pneumonia versus ongoing dehydration from chronic diarrhea versus difficulty eating -Given chronic diarrhea, stool culture checked and unremarkable - also appears maybe this "diarrhea" is truly stool leakage due to constipation as he states he can get a discharge. Review of CT reveals significant stool largely in the R side of abdomen -Patient also reports some difficulty with swallowing which could be playing a role in his anorexia, he thinks he can swallow efficiently however food seems to get stuck and slowly transition limiting his ability to eat; will trial Remeron 7.5 mg HS to help with sleep, appetite, depression - could slowly taper Paxil vs usage together --Barium swallow reveals trace aspiration which is likely incidental given the technique of swallowing during the study; also reveals moderate mid to distal esophageal dysmotility/spasm which may correlate given his age -we will try Protonix 40 mg twice daily to see if symptoms improve - WBC remains elevated but carries a diagnosis of MGUS - typically MGUS is asymptomatic but can cause weakness - given MGUS could consider multiple myeloma vs lymphoma? polymyalgia rheumatica? -- Per review of PCP notes - was referred to Hematology but due to his being sick before she passed he was not able to go then deferred on F/U - Possible pneumonia on imaging -WBC was improving but increased 05/23 but remains afebrile -broadened antibiotics to Zosyn given possibility of aspiration and WBC trending down - likely can transition to Augmentin soon --CXR on 05/23 revealed some worsening of midlung opacity which this location also correlates with patient's ongoing chest pain -possibly edema versus pneumonitis versus pneumonia -- Pleuritic CP could be related to this? no fever, tachycardia, SOB, hypoxia, swelling in legs, pain in legs to suggest DVT/PE -Given possibility of pneumonitis and even possibility of polymyalgia rheumatica can trial prednisone 20 mg daily x5 days - As discussed with granddaughter - it is possible this could be depression causing some of the worsening of symptoms - he does appear rather flat but seems to be improving the past couple days - lost his and brother recently -PT/OT (5) Diabetes mellitus: -Reports borderline diabetic -manages glucose with dietary management --Given poor appetite would allow liberalize diet to include any food patient would prefer to eat over strict diabetic management -A1c acceptable (6) Hypothyroidism: - TSH - WNL -Continue levothyroxine 112 mcg daily (7) DVT prophylaxis: Heparin Disposition: Planning on [facility] - no auth needed; possible [facility] on Sun- ; [facility]; paula Sarmiento at bedside and she would prefer to be called daily if possible - she will be in [place] from Sun-Sun but can be reached by cell Supervising Physician Co-Signing Physician Notes Patient was seen and examined by me personally. I reviewed the chart, the orders and discussed the case in detail with Azalia Mota PA-C . I agree with assessment and plan. Physical Exam Constitutional: + frail appearing; no acute distress Eyes: PERRLA, EOMI, + anicteric sclerae Neck: trachea midline Respiratory: normal respiratory effort Auscultation: + crackles (Bases bilaterally) Cardiovascular: Rate/Rhythm: regular rate and regular rhythm Gastrointestinal (Abdomen): Inspection/Auscultation: normal bowel sounds Percussion/Palpation: abdomen soft; abdomen nontender Musculoskeletal: Head/Neck/Chest: normocephalic and head atraumatic Skin: no rashes, warm and dry Neurologic: moves all extremities Psychiatric: A+Ox3, euthymic affect Subjective Patient reports feeling a little bit better today. Family is visiting during my visit. Patient continues to have intermittent right-sided chest pain which is only present with taking deep breaths. He states he has had this pain before and they cannot figure out what it was. He was seen by his PCP and lead maintenance technician due to this right-sided pain which did spontaneously resolve. At that time they did consider possible stress test but opted for echocardiogram initially and then pain never returned. He denies exertional chest pain or pain at rest. Denies shortness of breath or radiation of pain. Vital signs are stable. His biggest complaint today is just continued generalized weakness but is very eager to ambulate and doing largely well with therapy. He verbalizes no other complaints at this time. Labs continue to trend down and nearly normalized. Review of Systems Constitutional: + fatigue and + anorexia; no fever and no chills Respiratory: + cough and + pain on inspiration; no dyspnea and no sputum production Cardiovascular: + chest pain (Right sided/pleuritic); no radiating jaw, neck or arm pain, no palpitations, no lightheadedness and no edema Gastrointestinal: no abdominal pain, no nausea, no vomiting, no constipation and no diarrhea/loose stools Genitourinary: no dysuria Musculoskeletal: + stiffness and + body aches; no swelling Integumentary: no rash Neurologic: + generalized weakness, + tingling and + numbness Physical Exam Constitutional: + frail appearing; no acute distress Eyes: + anicteric sclerae Neck: trachea midline Respiratory: normal respiratory effort Auscultation: + crackles (Bases bilaterally) Cardiovascular: Rate/Rhythm: regular rate and regular rhythm Gastrointestinal (Abdomen): Inspection/Auscultation: normal bowel sounds Percussion/Palpation: abdomen soft; abdomen nontender Musculoskeletal: Head/Neck/Chest: normocephalic and head atraumatic Skin: no rashes, warm and dry Neurologic: moves all extremities Psychiatric: A+Ox3, euthymic affect Results & Data Vital Signs (Past 12 Hours) Vital Signs Temp Pulse Resp BP BP Pulse Ox 05/24/19 15:14 36.6 C 72 18 147/75 H 93 05/24/19 10:07 36.2 C L 77 16 150/75 H 96 PG Care Time/CCT Total # of Minutes Spent Total Time Spent with Patient: Total time spent is greater than 50% in coordination of care (as documented) at patient's floor/unit and/or counseling patient: (1) Rhabdomyolysis Rhabdomyolysis type: non-traumatic Qualified Code(s): M62.82 - Rhabdomyolysis
[2019-05-24] MEDS: MIRTAZAPINE TAB 15 MG TAB PO SCH (20:32)
[2019-05-24] MEDS: PARoxetine HCl 10 MG TAB PO SCH (20:33)
[2019-05-24] MEDS: ACETAMINOPHEN 325 MG TAB PO PRN (20:36)
[2019-05-25] MEDS: PIPERACILLIN/TAZOBACTAM 3.375 GM in DEXTROSE 5% 100 ML IV SCH ×3 (02:08→18:26)
[2019-05-25] MEDS: LEVOTHYROXINE SODIUM 112 MCG TABLET PO SCH (05:41)
[2019-05-25 05:43] LABS: Hematocrit (blood only) 35.1 % (42-52); Hemoglobin 11.5 g/dL (14.0-18.0); Mean Corpuscular Hemoglobin 29.9 pg (25-34); Mean Corpuscular Hgb Conc 32.8 g/dL (32-36); Mean Corpuscular Volume 91.4 fL (80-100); Platelet Count 381 K/uL (130-400); RDW Coefficient of Variation 15.2 % (11.5-14.5); RDW Standard Deviation 51.1 fL (36.4-46.3); Red Blood Count 3.84 M/uL (4.7-6.1); White Blood Count 12.76 K/uL (4.8-10.8)
[2019-05-25] MEDS: HEPARIN SOD 5,000 UNIT/0.5 ML VIAL SQ SCH ×2 (08:23→20:49)
[2019-05-25] MEDS: GABAPENTIN 100 MG CAP PO SCH ×2 (08:29→20:48)
[2019-05-25] MEDS: PANTOprazole 40 MG TAB PO SCH ×2 (08:30→20:48)
[2019-05-25] MEDS: predniSONE 20 MG TAB PO SCH (08:30)
[2019-05-25] MEDS: ASPIRIN 81 MG ECTAB PO SCH (08:30)
[2019-05-25] MEDS: BENZONATATE 100 MG CAPSULE PO SCH ×3 (08:30→20:48)
--- NOTE | 2019-05-25 19:27 | Hospitalist Progress Note ---
Date of Service May 25, 2019 Assessment & Plan (1) Rhabdomyolysis: Patient is a 89yo M PMH ILD, , MGUS, hypothyroid, HLD, T2DM, Depression, DJD, neuropathy, admitted for rhabdomyolysis/page/weakness -Uncertain of duration of time on the floor -reporting difficulty moving his legs and generalized weakness which was occurring prior to fall -CK peaked at 22,000 and currently now at 300; Holding further IVF at this time - increased crackles/peripheral edema and will be cautious given moderate and given Lasix IV x1 on 05/23 -Troponin peaked at 0.201 and trended down and likely in the setting of significant traumatic rhabdomyolysis/demand ischemia -- Echo (Mar 2019) - EF 60-65%, moderate , mild tricuspid regurg, and grade I diastolic dysfunction - repeat echo was unchanged from prior -Presence of transaminitis which is resolving and again likely in setting of significant rhabdomyolysis -We will continue to monitor labs daily - EMG from December 2018 - remarkable for underlying polyneuropathy involving sensory and motor fibers (2) Renal mass: -CT -indeterminate 2 cm lobulated density within the right renal pelvis - recommending nonemergent renal protocol CT to further evaluate lesion and will order this to assess --Did discuss findings with patient and Guillermina and need for more thorough studies to further assess -did discuss possibility of benign versus malignant etiologies and will continue to monitor -Consideration for urology consultation to weigh in on findings vs outpatient referral (3) PAGE (acute kidney injury): -Creatinine 2.09 on admission and now normalized -Avoid nephrotoxic agents and renally dose medications - will monitor given IV contrast (4) Weakness: -Possibly multifactorial - now leaning towards Polymyalgia Rheumatica? -- Has report chronic diarrhea but CT does show some stool in the R side - possible constipation with stool leakage. Patient seems to have some days of constipation and some of diarrhea so increasing Fiber may assist. Now with eating better and ambulating this could help. Stool Cx negative. Reported rectal drainage has stopped per patient --Patient also reports some difficulty with swallowing which could be playing a role in his anorexia, he thinks he can swallow efficiently however food seems to get stuck and slowly transition limiting his ability to eat; will trial Remeron 7.5 mg HS to help with sleep, appetite, depression - could slowly taper Paxil vs usage together but see discussion on PMR below --Barium swallow reveals trace aspiration which is likely incidental given the technique of swallowing during the study; also reveals moderate mid to distal esophageal dysmotility/spasm which may correlate given his age -we will try Protonix 40 mg twice daily to see if symptoms improve and this was discussed with VETERINARY ASSISTANT TECHNICIAN - WBC remains elevated but carries a diagnosis of MGUS - typically MGUS is asymptomatic but can cause weakness - given MGUS could consider multiple myeloma vs lymphoma? polymyalgia rheumatica? -- Per review of PCP notes - was referred to Hematology but due to his being sick before she passed he was not able to go then deferred on F/U - Possible pneumonia on imaging -WBC was improving but increased 05/23 but remains afebrile -broadened antibiotics to Zosyn given possibility of aspiration and WBC trending down and procalcitonin negative - will stop further antibiotics at this time as he had several days of treatment --CXR on 05/23 revealed some worsening of midlung opacity which this location also correlates with patient's ongoing chest pain -possibly edema versus pneumonitis versus pneumonia -- Pleuritic CP could be related to this? no fever, tachycardia, SOB, hypoxia, swelling in legs, pain in legs to suggest DVT/PE and currently resolved per patient; patient does have underlying pulmonary fibrosis per chart review -Given possibility of pneumonitis and even possibility of polymyalgia rheumatica can trial prednisone 20 mg daily x5 days - As discussed with granddaughter - it is possible this could be depression causing some of the worsening of symptoms - he does appear rather flat but seems to be improving the past couple days - lost his and brother recently -PT/OT PMR: Patient looks fantastic today. This is the first day he is reporting he feels well. He states he can finally move his arms and legs without difficulty. Feels that this is the first time he can do this easily since admission. Patient no longer presents with a flat affect and largely laughing/smiling during my visit today. Will check ESR/CRP but regardless this could be nonspecific. I do question that his presentation may simply be PMR. Upon utilizing steroids his symptoms have improved rather drastically when he has been here for nearly a week with minimal improvement. Could explain the shoulder aches/stiffness and the hip/thigh complaints he had. Also could explain the fatigue, malaise, loss of appetite, weight loss, and depressed appearance as all of this seems to have largely resolved. Did place Prednisone 20 mg x 5 days total. Per chart he has a H/O gastric ulcer so will need to monitor. Could consider short course steroids to help with symptoms and then monitor but maybe benefit from low dose (5 mg daily) if this is an ongoing issue for him. (5) Diabetes mellitus: -Reports borderline diabetic -manages glucose with dietary management --Given weight loss and initial poor appetite will broaden diet. Patient would like to have more then minced foods and will trial bite sized. Would recommend allowing patient to consume any foods he would prefer and to not restrict -A1c acceptable at 6.2 (6) Hypothyroidism: - TSH - WNL -Continue levothyroxine 112 mcg daily (7) DVT prophylaxis: Heparin Disposition: Planning on [facility] - no auth needed; given today is first day with reported improvement would monitor tomorrow and await CT scan and consider [facility] on Sunday. Please update Guillermina daily if possible per patient request. She is in [place] until Sunday but can be reached by phone number in chart. Supervising Physician Co-Signing Physician Notes Patient was seen and examined by me personally. I reviewed the chart, the orders and discussed the case in detail with Azalia Mota PA-C . I agree with assessment and plan. Physical Exam Constitutional: + frail appearing; no acute distress Eyes: PERRLA, EOMI, + anicteric sclerae Neck: trachea midline Respiratory: normal respiratory effort Auscultation: + crackles (Bases bilaterally) Cardiovascular: Rate/Rhythm: regular rate and regular rhythm Gastrointestinal (Abdomen): Inspection/Auscultation: normal bowel sounds Percussion/Palpation: abdomen soft; abdomen nontender Musculoskeletal: Head/Neck/Chest: normocephalic and head atraumatic Skin: no rashes, warm and dry Neurologic: moves all extremities Psychiatric: A+Ox3, euthymic affect Subjective Today patient reports he is feeling better. Most visits when stating he looks like his is doing better he would just respond with "I hope so" but today actually relates he is feeling better. He is smiling and laughing during my visit. He is happy he can move his arms and legs while laying in the bed. He states he has eating his whole meals today and feels hungry. He continues to be eager to ambulate the halls. States he still tires out but feeling like he is moving in the right direction. He reports the pleuritic R sided chest pain is resolved today. Review of Systems Constitutional: + increased appetite; no fever and no chills Eyes: no worsening vision denies temporal pain or jaw claudication Respiratory: + cough; no dyspnea, no pain on inspiration and no sputum production Cardiovascular: no chest pain, no radiating jaw, neck or arm pain, no palpitations, no lightheadedness and no edema Gastrointestinal: no abdominal pain, no nausea and no vomiting Genitourinary: no dysuria Musculoskeletal: no swelling, no stiffness and no body aches denies weakness but does still tire easily with prolonged activity Integumentary: no rash Neurologic: + tingling and + numbness; no generalized weakness Physical Exam Constitutional: + frail appearing; no acute distress Eyes: + anicteric sclerae Neck: trachea midline Respiratory: normal respiratory effort Auscultation: + crackles (Bases bilaterally) Course R > L Cardiovascular: Rate/Rhythm: regular rate and regular rhythm Gastrointestinal (Abdomen): Inspection/Auscultation: normal bowel sounds Percussion/Palpation: abdomen soft; abdomen nontender Musculoskeletal: Head/Neck/Chest: normocephalic and head atraumatic Skin: no rashes, warm and dry Neurologic: moves all extremities Psychiatric: A+Ox3, euthymic affect Results & Data Vital Signs (Past 12 Hours) Vital Signs Temp Pulse Resp BP BP Pulse Ox 05/25/19 16:11 159/67 H 05/25/19 15:26 36.8 C 65 17 162/73 H 94 05/25/19 07:30 36.3 C L 73 16 149/71 H 94 PG Care Time/CCT Total # of Minutes Spent Total Time Spent with Patient: Total time spent is greater than 50% in coordination of care (as documented) at patient's floor/unit and/or counseling patient: (1) Rhabdomyolysis Rhabdomyolysis type: non-traumatic Qualified Code(s): M62.82 - Rhabdomyolysis
[2019-05-25] MEDS: MIRTAZAPINE TAB 15 MG TAB PO SCH (20:48)
[2019-05-25] MEDS: PARoxetine HCl 10 MG TAB PO SCH (20:48)
[2019-05-25] MEDS: ACETAMINOPHEN 325 MG TAB PO PRN (21:07)
[2019-05-26] MEDS: LEVOTHYROXINE SODIUM 112 MCG TABLET PO SCH (04:53)
[2019-05-26 05:37] LABS: Hematocrit (blood only) 37.6 % (42-52); Hemoglobin 12.1 g/dL (14.0-18.0); Mean Corpuscular Hemoglobin 30.1 pg (25-34); Mean Corpuscular Hgb Conc 32.2 g/dL (32-36); Mean Corpuscular Volume 93.5 fL (80-100); Mean Platelet Volume 10.8 fL (7.4-10.4); Platelet Count 469 K/uL (130-400); RDW Standard Deviation 51.2 fL (36.4-46.3); Red Blood Count 4.02 M/uL (4.7-6.1); White Blood Count 12.64 K/uL (4.8-10.8)
[2019-05-26 06:07] LABS: BUN Creatinine Ratio 20.1 (10-20); Calcium 8.3 mg/dl (8.5-10.1); Creatinine Clr Calc Pharmacy 46.4 ml/min; Est GFR (Non-African American) 56.1; Potassium 3.5 mmol/L (3.5-5.1)
[2019-05-26 06:11] LABS: C Reactive Protein 3.72 mg/dl (0-0.29)
--- NOTE | 2019-05-26 08:47 | Hospitalist Progress Note ---
Date of Service May 26, 2019 Assessment & Plan (1) Rhabdomyolysis: Patient is a 89yo M PMH ILD, , MGUS, hypothyroid, HLD, T2DM, Depression, DJD, neuropathy, admitted for rhabdomyolysis/page/weakness Patient is feeling much better today and ready to be transferred to [facility] for nursing home and physical and Occupational Therapy to prevent further falls. Patient lives by himself. -CK peaked at 22,000 and currently now at 300; Holding further IVF at this time - increased crackles/peripheral edema and will be cautious given moderate and given Lasix IV x1 on 05/23 -Troponin peaked at 0.201 and trended down and likely in the setting of significant traumatic rhabdomyolysis/demand ischemia -- Echo (Mar 2019) - EF 60-65%, moderate , mild tricuspid regurg, and grade I diastolic dysfunction - repeat echo was unchanged from prior -Presence of transaminitis which is resolving and again likely in setting of significant rhabdomyolysis -We will continue to monitor labs daily - EMG from December 2018 - remarkable for underlying polyneuropathy involving sensory and motor fibers (2) Renal mass: -CT -indeterminate 2 cm lobulated density within the right renal pelvis - recommending nonemergent renal protocol CT to further evaluate lesion and will order this to assess --Did discuss findings with patient and Guillermina and need for more thorough studies to further assess -did discuss possibility of benign versus malignant etiologies and will continue to monitor -Follow-up urology outpatient within a 2 weeks. (3) PAGE (acute kidney injury): -Creatinine 2.09 on admission and now normalized -Avoid nephrotoxic agents and renally dose medications - will monitor given IV contrast (4) Weakness: -Possibly multifactorial - now leaning towards Polymyalgia Rheumatica? -- Has report chronic diarrhea but CT does show some stool in the R side - possible constipation with stool leakage. Patient seems to have some days of constipation and some of diarrhea so increasing Fiber may assist. Now with eating better and ambulating this could help. Stool Cx negative. Reported rectal drainage has stopped per patient --Patient also reports some difficulty with swallowing which could be playing a role in his anorexia, he thinks he can swallow efficiently however food seems to get stuck and slowly transition limiting his ability to eat; will trial Rem hank 7.5 mg HS to help with sleep, appetite, depression - could slowly taper Paxil vs usage together but see discussion on PMR below --Barium swallow reveals trace aspiration which is likely incidental given the technique of swallowing during the study; also reveals moderate mid to distal esophageal dysmotility/spasm which may correlate given his age -we will try Protonix 40 mg twice daily to see if symptoms improve and this was discussed with PONY WORKER - WBC remains elevated but carries a diagnosis of MGUS - typically MGUS is asymptomatic but can cause weakness - given MGUS could consider multiple myeloma vs lymphoma? polymyalgia rheumatica? --Patient is referred to hematology oncology to follow-up for MGUS within 2 to 4 weeks. - Possible pneumonia on imaging -WBC was improving but increased 05/23 but remains afebrile -broadened antibiotics to Zosyn given possibility of aspiration and WBC trending down and procalcitonin negative - will stop further antibiotics at this time as he had several days of treatment --CXR on 05/23 revealed some worsening of midlung opacity which this location also correlates with patient's ongoing chest pain -possibly edema versus pneumonitis versus pneumonia -- Pleuritic CP could be related to this? no fever, tachycardia, SOB, hypoxia, swelling in legs, pain in legs to suggest DVT/PE and currently resolved per patient; patient does have underlying pulmonary fibrosis per chart review -Given possibility of pneumonitis and even possibility of polymyalgia rheumatica can trial prednisone 20 mg daily x5 days - As discussed with granddaughter - it is possible this could be depression causing some of the worsening of symptoms - he does appear rather flat but seems to be improving the past couple days - lost his and brother recently -PT/OT (5) Diabetes mellitus: -Reports borderline diabetic -manages glucose with dietary management --Given weight loss and initial poor appetite will broaden diet. Patient would like to have more then minced foods and will trial bite sized. Would recommend allowing patient to consume any foods he would prefer and to not restrict -A1c acceptable at 6.2 (6) Hypothyroidism: - TSH - WNL -Continue levothyroxine 112 mcg daily (7) DVT prophylaxis: Heparin Disposition: Planning on [facility] - no auth needed; given today is first day with reported improvement would monitor tomorrow and await CT scan and consider [facility] on Sunday. Please update Guillermina daily if possible per patient request. She is in [place] until Sunday but can be reached by phone number in chart. Subjective Patient seen and examined at the bedside. He is sitting up in the chair. Feeling much better. He reports he is ready to go to [facility]. Patient is afebrile. Patient denies fever, chills, chest pain, shortness of breath, abdominal pain, frequency, urgency. Patient will follow-up with urology for pelvic mass and hematology and oncology for MGUS within 2 to 4 weeks. Appetite is improving. Patient has regular bowel movements. Review of Systems Review of Systems: All systems reviewed & are unremarkable except as noted in HPI & below Constitutional: + increased appetite; no fever and no chills Eyes: denies temporal pain or jaw claudication Musculoskeletal: denies weakness but does still tire easily with prolonged activity Physical Exam Constitutional: WD/WN, vitals as above + ill appearing (chronically) and + frail appearing; no acute distress Eyes: PERRL, conjunctivae normal, anicteric sclerae + anicteric sclerae ENMT: Mouth: + oral mucosal abnormality (Dry mucous membranes) and + dry oral mucous membranes Neck: normal visual inspection and trachea midline Respiratory: normal respiratory effort, lungs clear to auscultation normal respiratory effort Auscultation: + crackles (Bases bilaterally) Cardiovascular: Rate/Rhythm: regular rate and regular rhythm Heart Sounds: + murmur Vessels: + carotid bruit Extremities: no pedal edema Gastrointestinal (Abdomen): normal bowel sounds, soft, nontender, no hepatosplenomegaly Inspection/Auscultation: + abdomen distended (Mild) and normal bowel sounds Percussion/Palpation: abdomen soft; abdomen nontender Musculoskeletal: Head/Neck/Chest: normocephalic and head atraumatic Extremities: strength 5/5 throughout (4/5 strength in lower extremities, patient able to move on his own) Skin: no rashes, warm and dry + turgor decreased Neurologic: PERRL, EOMI, accommodation nl, no face palsy, no dysarthria moves all extremities Psychiatric: A+Ox3, euthymic affect Results & Data Vital Signs (Past 12 Hours) Vital Signs Temp Pulse Resp BP BP Pulse Ox 05/26/19 07:06 36.3 C L 63 18 176/72 H 96 05/25/19 23:07 36.7 C 72 17 143/64 H 93 PG Care Time/CCT Total # of Minutes Spent Total Time Spent with Patient: Total time spent is greater than 50% in coordination of care (as documented) at patient's floor/unit and/or counseling patient: (1) Rhabdomyolysis Rhabdomyolysis type: non-traumatic Qualified Code(s): M62.82 - Rhabdomyolysis
[2019-05-26] MEDS: BENZONATATE 100 MG CAPSULE PO SCH (09:04)
[2019-05-26] MEDS: ASPIRIN 81 MG ECTAB PO SCH (09:04)
[2019-05-26] MEDS: predniSONE 20 MG TAB PO SCH (09:04)
[2019-05-26] MEDS: GABAPENTIN 100 MG CAP PO SCH (09:04)
[2019-05-26] MEDS: PANTOprazole 40 MG TAB PO SCH (09:04)
[2019-05-26] MEDS: HEPARIN SOD 5,000 UNIT/0.5 ML VIAL SQ SCH (09:07)
--- NOTE | 2019-05-26 12:30 | Discharge Summary ---
Date of Service May 26, 2019 Admission HPI Per Admitting Provider Patient is a 89yo M PMH ILD, , MGUS, hypothyroid, HLD, T2DM, Depression, anemia, DJD, neuropathy, who presents via EMS after being found by granddaughter on the floor. History provided by Granddaughter, Guillermina. She notes that he has been having chronic issues with LE weakness and dizziness, however he was at [facility] 1 week ago and felt 100%. After returning from [facility], he thinks he caught a cold which he has been struggling with. Pt has family check on him daily, and granddaughter states on Sunday ([address]), he was c/o diminished strength, not eating, dehydrated, decreased ambulation. Another family member did check on him on Sunday and noted more of the same. Granddaughter checked on him this evening (Sunday), and found him alongside his bed, with his head resting on the bed, legs extended on the floor. Pt does not 100% remember events of this evening, but states that he was too weak while getting into bed and denies falling out of bed or hitting his head. He does not believe he had been there long. Granddaughter states he felt he couldn't move his legs, and therefore a neighbor helped her hoist him into bed to await EMS. She notes that he will periodically have issues with balance and leg weakness and that physicians have reported there's not much to be done. Guillermina notes that he has an appointment on Sunday morning and she expected that Dr. Fam would be sending him to the ER if for nothing else, rehydration. In the ER, Labwork revealed an elevtaed WBC of 17K, PAGE with Cr of 2.09 (Baseline 1.2-1.3), CK of 5941, mildly elevated troponin 0.066, Mildly altered LFTs, and a normal VBG, normal TSH. He was given a 1500cc bolus of fluid. Head CT, Ab/Pelvis CT both without acute findings; pending formal read by radiology. Principal Diagnosis none Discharge Exam Constitutional WD/WN, vitals as above Eyes PERRL, conjunctivae normal, anicteric sclerae + anicteric sclerae ENMT Mouth: + oral mucosal abnormality (Dry mucous membranes) and + dry oral mucous membranes Neck normal visual inspection and trachea midline Respiratory normal respiratory effort, lungs clear to auscultation normal respiratory effort Auscultation: + crackles (Bases bilaterally) Cardiovascular Rate/Rhythm: regular rate and regular rhythm Heart Sounds: normal S1, normal S2 and + murmur Vessels: + carotid bruit and dorsalis pedis pulses present Gastrointestinal (Abdomen) normal bowel sounds, soft, nontender, no hepatosplenomegaly Inspection/Auscultation: normal bowel sounds Musculoskeletal Head/Neck/Chest: normocephalic and head atraumatic Extremities: strength 5/5 throughout (4/5 strength in lower extremities, patient able to move on his own) Skin no rashes, warm and dry + turgor decreased Neurologic PERRL, EOMI, accommodation nl, no face palsy, no dysarthria moves all extremities Psychiatric A+Ox3, euthymic affect Discharge Data Allergies Allergy/AdvReac Type Severity Reaction Status Date / Time No Known Allergies Allergy Verified 05/18/19 23:38 Consultations 05/19/19 01:55 ED Decision to Admit Stat 05/19/19 03:27 Consult Case Management - Discharge Planning Routine Ordered Studies 05/18/19 23:13 CT head/brain wo con Stat 05/19/19 00:25 CT abd pelvis wo con Urgent 05/23/19 09:45 FL barium swallow Routine 05/26/19 09:00 CT abd pelvis IV con only Routine Hospital Course (1) Rhabdomyolysis: Patient is a 89yo M PMH ILD, , MGUS, hypothyroid, HLD, T2DM, Depression, DJD, neuropathy, admitted for rhabdomyolysis/page/weakness Patient is feeling much better today and ready to be transferred to [facility] for assisted and physical and Occupational Therapy to prevent further falls. Patient lives by himself. -CK peaked at 22,000 and currently now at 300; Holding further IVF at this time - increased crackles/peripheral edema and will be cautious given moderate and given Lasix IV x1 on 05/23 -Troponin peaked at 0.201 and trended down and likely in the setting of significant traumatic rhabdomyolysis/demand ischemia -- Echo (Mar 2019) - EF 60-65%, moderate , mild tricuspid regurg, and grade I diastolic dysfunction - repeat echo was unchanged from prior Follow up with cardiology for moderate within 4 weeks. -Presence of transaminitis which is resolving and again likely in setting of significant rhabdomyolysis -We will continue to monitor labs daily - EMG from December 2018 - remarkable for underlying polyneuropathy involving sensory and motor fibers (2) Renal mass: -CT -indeterminate 2 cm lobulated density within the right renal pelvis - recommending nonemergent renal protocol CT to further evaluate lesion and will order this to assess --Did discuss findings with patient and Guillermina and need for more thorough studies to further assess -did discuss possibility of benign versus malignant etiologies and will continue to monitor -Follow-up urology outpatient within a 2 weeks. (3) PAGE (acute kidney injury): -Creatinine 2.09 on admission and now normalized -Avoid nephrotoxic agents and renally dose medications - will monitor given IV contrast (4) Weakness: -Possibly multifactorial - now leaning towards Polymyalgia Rheumatica? -- Has report chronic diarrhea but CT does show some stool in the R side - possible constipation with stool leakage. Patient seems to have some days of constipation and some of diarrhea so increasing Fiber may assist. Now with eating better and ambulating this could help. Stool Cx negative. Reported rectal drainage has stopped per patient --Patient also reports some difficulty with swallowing which could be playing a role in his anorexia, he thinks he can swallow efficiently however food seems to get stuck and slowly transition limiting his ability to eat; will trial Remeron 7.5 mg HS to help with sleep, appetite, depression - could slowly taper Paxil vs usage together but see discussion on PMR below --Barium swallow reveals trace aspiration which is likely incidental given the technique of swallowing during the study; also reveals moderate mid to distal esophageal dysmotility/spasm which may correlate given his age -we will try Protonix 40 mg twice daily to see if symptoms improve and this was discussed with PSYCHOLOGIST PERSONNEL - WBC remains elevated but carries a diagnosis of MGUS - typically MGUS is asymptomatic but can cause weakness - given MGUS could consider multiple myeloma vs lymphoma? polymyalgia rheumatica? --Patient is referred to hematology oncology to follow-up for MGUS within 2 to 4 weeks. - Possible pneumonia on imaging -WBC was improving but increased 05/23 but remains afebrile -broadened antibiotics to Zosyn given possibility of aspiration and WBC trending down and procalcitonin negative - will stop further antibiotics at this time as he had several days of treatment --CXR on 05/23 revealed some worsening of midlung opacity which this location also correlates with patient's ongoing chest pain -possibly edema versus pneumonitis versus pneumonia -- Pleuritic CP could be related to this? no fever, tachycardia, SOB, hypoxia, swelling in legs, pain in legs to suggest DVT/PE and currently resolved per patient; patient does have underlying pulmonary fibrosis per chart review -Given possibility of pneumonitis and even possibility of polymyalgia rheumatica can trial prednisone 20 mg daily x5 days - As discussed with granddaughter - it is possible this could be depression causing some of the worsening of symptoms - he does appear rather flat but seems to be improving the past couple days - lost his and brother recently -PT/OT (5) Diabetes mellitus: -Reports borderline diabetic -manages glucose with dietary management --Given weight loss and initial poor appetite will broaden diet. Patient would like to have more then minced foods and will trial bite sized. Would recommend allowing patient to consume any foods he would prefer and to not restrict -A1c acceptable at 6.2 (6) Hypothyroidism: - TSH - WNL -Continue levothyroxine 112 mcg daily (7) DVT prophylaxis: Heparin Disposition: Planning on [facility] - no auth needed; given today is first day with reported improvement would monitor tomorrow and await CT scan and consider [facility] on Sunday. Please update Guillermina daily if possible per patient request. She is in [place] until Sunday but can be reached by phone number in chart. Total Time Total Time Spent Total Time Spent (In Minutes): over 30 min Discharge Plan Discharge Items Patient Disposition: Transfer Residential Fac Reason For Visit: RHABDO,WEAKNESS,PAGE Discharge Diagnosis: Rhabdo, generalized weakness, PAGE Condition on Discharge: Good Activity: As commented below Lifting: Gradually increase as tolerated Non-emergency contact: Primary Care Provider, Oncologist and Urologist Call non-emergency contact if: you have any medication questions, your pain is not controlled, your pain is worsening, your pain is unusual for you, you have a fever, your temperature is above 101 and your temperature is above 101.5 Follow-up/Referrals: Anderson Fam MD [Primary Care Provider] - 05/28/19 1:30 pm (Please, follow up at Dr. Fam's office with his associate, Dorcas Guo PA-C, on SundayMay 28 at 1:30 pm. *If you need to change this appointment, call the office at [phone].) Diet: Carb Consistent or DM2, Heart Healthy and Low Sodium (2gm) Addtl Attending Provider Instructions: Please follow up with urology for indeterminate 2 cm lobulated density within the right renal pelvis. Follow up with Hematology /Oncology for MGUS. Pending Studies at Discharge: No Stand-Alone Forms: My [facility] Skilled Items Patient informed of condition?: Yes DNR: Yes Discharge Level of Care: Skilled Communicable Disease: No Discharge Prognosis: Stable Lines: None Urinary Catheter: No Medications and DC Order Prescriptions: New prednisone 20 mg Tablet 20 mg PO DAILY Qty: 3 RF: 0 aspirin [Ecotrin Low Strength] 81 mg Tablet,Delayed Release (Dr/Ec) 81 mg PO QAM Qty: 30 RF: 0 mirtazapine 15 mg Tablet 7.5 mg PO HS Qty: 30 RF: 0 Continued PreserVision AREDS [id number] capsule 1 cap PO BID RF: 0 cyanocobalamin (vitamin B-12) 1,000 mcg/mL solution 1,000 mcg SQ MONTHLY RF: 0 celecoxib [Celebrex] 200 mg capsule 200 mg PO DAILY RF: 0 gabapentin 100 mg capsule 200 mg PO BID Qty: 120 RF: 5 nystatin 100,000 unit/gram powder 1 appln TOP BID Qty: 30 RF: 0 paroxetine HCl 10 mg tablet 10 mg PO DAILY Qty: 90 RF: 3 levothyroxine [Synthroid] 112 mcg tablet 112 mcg PO DAILY RF: 0 Discharge Orders: Discharge Order (Routine); Ordered 05/26/19 Ordered By: Marily Tavares Admission Data Admit Date/Time: 05/19/19 02:27 Attending Provider: Marily Tavares Admit Provider: Deonna Menezes Primary Care Provider: Anderson Fam Other Providers: Philip Jett ; [facility]
--- NOTE | 2019-06-03 07:57 | Coding Query ---
CODING QUERY To promote full compliance with coding requirements relating to patient care, provider participation is requested in all cases of certified medical coder uncertainty. Please assist us with the question(s) below: Coding Question(s): Possible Pneumonia/Pneumonitis is documented beginning on Progress Note 05/22/19 and through Discharge Summary. The Discharge Summary documents, "Possible pneumonia on imaging -WBC was improving but increased 05/23 but remains afebrile -broadened antibiotics to Zosyn given possibility of aspiration and WBC trending down and procalcitonin negative - will stop further antibiotics at this time as he had several days of treatment --CXR on 05/23 revealed some worsening of midlung opacity which this location also correlates with patient's ongoing chest pain -possibly edema versus pneumonitis versus pneumonia -- Pleuritic CP could be related to this? no fever, tachycardia, SOB, hypoxia, swelling in legs, pain in legs to suggest DVT/PE and currently resolved per patient; patient does have underlying pulmonary fibrosis per chart review -Given possibility of pneumonitis and even possibility of polymyalgia rheumatica can trial prednisone 20 mg daily x5 days". Please clarify below, in your clinical opinion: ( ) Possible Pneumonia/Pneumonitis was treated ( ) Pneumonia Unspecified ( ) Aspiration Pneumonia ( ) Pneumonia, Other: Please Specify ( ) Possible Pneumonia is Ruled-Out ( ) Pulmonary Edema was treated ( ) Acute Pulmonary Edema ( ) Chronic Pulmonary Edema ( ) Pulmonary Edema was due to Pneumonia (as specified above) ( ) Pulmonary Edema, Other: Please Specify Physician's Response(s): ( ) Aspiration Pneumonia ( ) Acute Pulmonary Edema Thank you Buffy Hernandez Principal Diagnosis: "that condition established after study, to be chiefly responsible for occasioning the admission of the patient to the hospital for care." Co-Existing Principal Diagnosis: "when two or more diagnoses equally meet the criteria for principal diagnosis as determined by the circumstances of admission, diagnostic work up, and/or therapy provided, and the Alphabetic Index, Tabular List, or another coding guideline does not provide sequencing direction, any one of the diagnoses may be sequenced first." "When the physician has documented what appears to be a current diagnosis in the body of the record, but has not included the diagnosis in the final diagnostic statement, the physician should be asked whether the diagnosis should be added." ([facility] 2 QTR90. p3-4) FABIÁN
--- NOTE | 2019-06-03 08:01 | Coding Query ---
PRESSURE ULCER DOCUMENTATION To promote full compliance with coding requirements relating to patient care, physician participation is requested in all cases of cab supervisor uncertainty. Please assist us with the question(s) below: Please specify the known or suspected type by placing an "X" within the parenthesis (x). A pressure ulcer of the Sacral area (ER H&P documents, "Has seen his doctor over the past several weeks is a little bit of a white yeastlike infection on his buttocks. This appears consistent may be a mild sacral decub here."). If possible, please check the box that provides the specific stage of the pressure ulcer (X ) Stage I ( ) Stage II ( ) Stage III ( ) Stage IV ( ) Unstageable ( ) Unable to determine Thank you Buffy LOCKWOOD
== END 2019-05-26 13:44 | DRG 564 ==
LOC: ED 22:33 → SUATTDRO 05-19 02:27 → 3W 05-19 02:27